=== PATIENT | female | born 1960 | race Caucasian/White ===

== ENCOUNTER 2020-05-29 07:38 | Outpatient (REF) | payer BC, SELFPAY ==
[2020-05-29 08:32] LABS: Hematocrit 39.7 % (37-47); Hemoglobin 12.5 g/dl (12.0-16.0); Mean Corpuscular HGB Conc 31.5 g/dl (31.0-35.0); Mean Corpuscular Hemoglobin 29.1 pg (27.0-33.0); Mean Corpuscular Volume 92.5 fL (80-98); Mean Platelet Volume 9.2 fL (9.4-12.3); Platelet Count 209 X10*3/uL (160-400); Red Blood Count 4.29 X10*6/uL (4.20-5.50); Red Cell Distribution Width 13.2 % (11.0-16.0); White Blood Count 6.2 X10*3/uL (4.8-10.8)
[2020-05-29 08:56] LABS: Alanine Aminotransferase 18 U/L (0-31); Albumin Level 4.1 g/dL (3.5-5.0); Alkaline Phosphatase 103 U/L (39-117); Anion Gap 12 (12-20); Aspartate Amino Transferase 18 U/L (5-31); Bilirubin Total 0.4 mg/dL (0.0-1.0); Blood Urea Nitrogen 15 mg/dL (9-16); Calcium 9.1 mg/dL (8.4-10.2); Carbon Dioxide 28 mmol/L (22-29); Chloride 106 mmol/L (96-108); Cholesterol 217 mg/dL; Estimated Glomerular Filt Rate > 60; Glucose Fasting 93 mg/dL (60-99); HDL Cholesterol 57 mg/dL; LDL Cholesterol Calculated 140 mg/dl; Potassium 4.3 mmol/l (3.3-5.1); Sodium 142 mmol/L (135-145); Total Protein 6.5 g/dL (6.5-8.0); Triglycerides 103 mg/dL
[2020-05-29 09:19] LABS: TSH reflex Free T4 2.12 mIU/mL (0.32-4.0)
== END 2020-05-29 07:39 | disposition home or self-care (01) ==
LOC: HO.LAB 07:38
PROVIDERS: PCP Physician Assistant; Visit Provider Physician Assistant
DX: I10 Essential (primary) hypertension (principal); E78.5 Hyperlipidemia, unspecified
CPT/HCPCS: 36415; 80053; 80061; 84443; 85027

== ENCOUNTER 2020-07-20 10:15 | Outpatient (REF) | payer BC, SELFPAY ==
--- NOTE | ~2020-07-20 | US_ITS ---
EXAMINATION: US ABDOMEN LIMITED CLINICAL INFORMATION: Right sided pain. COMPARISON: None TECHNIQUE: Real-time imaging of the right upper quadrant abdominal viscera. FINDINGS: PANCREAS: Normal. LIVER: The liver is normal in size. The liver contour is normal. Liver echotexture may be slightly increased. No focal hepatic lesion. There is no intrahepatic biliary duct dilatation seen. GALLBLADDER: There is a 3 mm echogenic density that does not move or shadow adjacent to the gallbladder wall questionable for a small gallbladder wall polyp. No definite stone is seen. The gallbladder wall is normal in thickness. There is no pericholecystic fluid. COMMON BILE DUCT: Normal in caliber measuring 0.50 cm in diameter. RIGHT KIDNEY: There is a 3 mm echogenic density with twinkle artifact in the midpole questionable for a small stone No hydronephrosis or focal parenchymal lesions. The kidney measures 10.1 cm in maximum dimension. FREE FLUID: None. US/US abdomen limited IMPRESSION: Slightly echogenic liver. Small 3 mm gallbladder wall polyp. Question small right renal stone.
== END 2020-07-20 10:16 | disposition home or self-care (01) ==
LOC: HO.HMGCX 10:15
PROVIDERS: PCP Physician Assistant; Visit Provider Internal Medicine
DX: R10.31 Right lower quadrant pain (principal)
CPT/HCPCS: 76705

== ENCOUNTER 2020-08-12 02:01 | Emergency (ER) | payer BC, SELFPAY ==
--- NOTE | ~2020-08-12 | CT_ITS ---
EXAMINATION: CT ABDOMEN AND PELVIS WITH CONTRAST CLINICAL INFORMATION: Right flank pain COMPARISON: None TECHNIQUE: Multidetector volumetric images were obtained from the superior aspect of the liver through the pubic symphysis following administration 85 mL of Omnipaque 350 intravenous contrast. Sagittal and coronal reformatted images were obtained on the technologist's workstation. Oral contrast: No This CT examination was performed using dose optimization techniques as appropriate, variously including the following: *Automated exposure control *Adjustment of mA and/or kV according to patient size (this includes techniques or standardized protocols for targeted exams where dose is matched to indication/reason for exam; i.e. extremities or head) *Use of iterative reconstruction technique DLP: 617 mGy-cm FINDINGS: LUNG BASES: The visualized lung bases are unremarkable. LIVER, GALLBLADDER, AND BILIARY TREE: The liver is normal in size, shape, and attenuation. No focal hepatic lesion or biliary ductal dilatation is present. The gallbladder is unremarkable with no evidence of radiopaque gallstones, gallbladder wall thickening, or obvious pericholecystic inflammatory changes. PANCREAS: Unremarkable. SPLEEN: Unremarkable. ADRENAL GLANDS: Unremarkable. KIDNEYS AND URETERS: The kidneys are normal in size, shape, and attenuation. No hydronephrosis, hydroureter, or calculi seen. No perinephric stranding. BLADDER: Unremarkable. GASTROINTESTINAL TRACT: Stomach and small bowel unremarkable. Mild submucosal fat deposition present within the terminal ileum and cecum, nonspecific. No intestinal obstruction or inflammation. Normal appendix. ABDOMINAL WALL: Small fat-containing umbilical hernia. LYMPH NODES: Normal. VASCULAR: Unremarkable. PELVIC VISCERA: Unremarkable. OSSEOUS STRUCTURES: No acute or suspicious osseous abnormalities. CT/CT abdomen pelvis w con IMPRESSION: * No acute findings within the abdomen or pelvis to explain the patient's symptomatology. * Nonspecific submucosal fat deposition present within the terminal ileum and cecum. This can be seen as a normal finding in the setting of obesity, but can also been seen in association with inflammatory bowel disease.
[2020-08-12 02:35] VITALS: BP 146/77; PULSE 83; RESP 16; TEMP 36.8; O2SAT 97; BMI 31.2
--- NOTE | 2020-08-12 03:44 | ED_ITS ---
HPI - Female Genitourinary General Chief complaint: Back Pain/Injury Stated complaint: Kidney infection? Time Seen by Provider: 08/12/20 02:18 Source: patient Mode of arrival: ambulatory History of Present Illness HPI Narrative: This is a 60-year-old female who is currently being worked up for possible kidney stone and was recently treated for a kidney infection and completed the antibiotics approximately 2 and half weeks ago. She also had an ultrasound that showed a possible kidney stone on the right. She now presents with acute onset of right flank pain that radiated into her right shoulder and denies any association with nausea, vomiting, fever, chills and denies any history of being told of cholelithiasis. Related Data Home Medications Medication Instructions Recorded Confirmed pravastatin 80 mg tablet 80 mg PO DAILY 06/03/20 07/14/20 triamcinolone acetonide 0.5 % appl TOPICAL BID 06/03/20 07/14/20 topical cream Previous Rx's Medication Instructions Recorded cholecalciferol (vitamin D3) 50 50 mcg PO DAILY 90 Days #90 tab 06/03/20 mcg (2,000 unit) tablet ezetimibe 10 mg tablet 10 mg PO DAILY 90 Days #90 tab 06/03/20 fluoxetine 20 mg capsule 40 mg PO DAILY 90 Days #180 cap 06/03/20 levothyroxine 75 mcg tablet 75 mcg PO DAILY 90 Days #90 tab 06/03/20 ropinirole 0.25 mg tablet 0.25 mg PO BEDTIME 90 Days #90 tab 06/03/20 sulfamethoxazole 800 1 tab PO BID #14 tab 07/14/20 mg-trimethoprim 160 mg tablet cefixime 400 mg PO DAILY 5 Days #5 cap 08/12/20 Allergies Allergy/AdvReac Type Severity Reaction Status Date / Time No Known Allergies Allergy Verified 06/03/20 09:07 Review of Systems Review of Systems: For pertinent positives and negatives as stated in HPI 10 point review of systems is otherwise negative. [facility] Past Medical History Source: nursing notes reviewed Surgical History History of bladder surgery History of colonoscopy History of tubal ligation Family History Family History Father Prostate cancer Mother Celiac disease Breast cancer Brother In good health Daughter In good health Social History Social History Advance Directives: No Physical Exam Vital Signs: Vital Signs: Last Vital Signs Temp 98.3 F 08/12/20 02:35 Pulse 72 08/12/20 07:00 Resp 16 08/12/20 07:00 BP 120/70 08/12/20 07:00 Pulse Ox 97 08/12/20 07:00 Body Mass Index 31.2 VITAL SIGNS: Reviewed. GENERAL: Well developed, well nourished, in no acute distress. HEAD: Normocephalic/atraumatic NOSE: Nares patent bilateral OROPHARYNX: no oral lesions noted, posterior pharynx clear NECK: Supple, no adenopathy LUNGS: Normal breath sounds. No adventitious sounds or accessory muscle use. SpO2<97> CARDIOVASCULAR: Regular rate and rhythm without noted murmurs ABDOMEN: Soft, non-tender, non-distended with bowel sounds, no CVA tenderness NEUROLOGIC: Alert and oriented x 4. Course Course Course Narrative: 60-year-old female with history and clinical presentation mildly suggestive of renal colic versus pyelonephritis and less likely gallbladder etiology. On review of all investigations there are no acute findings to better explain patient's current presenting symptoms other than trace leukocyte esterase and the presence of wbc's. Patient will receive initial antibiotics here in the emergency department. All results and findings were discussed with her at bedside and she was discharged with prescription for antibiotics. MDM - Female Genitourinary Lab Data Result diagrams: 08/12/20 04:21 08/12/20 04:21 Labs: Lab Results 08/12/20 08/12/20 08/12/20 Range/Units 04: 04:21 04:22 WBC 8.4 (4.8-10.8) X10*3/uL RBC 4.08 L (4.20-5.50) X10*6/uL Hgb 11.7 L (12.0-16.0) g/dl Hct 37.2 (37-47) % MCV 91.2 (80-98) fL MCH 28.7 (27.0-33.0) pg MCHC 31.5 (31.0-35.0) g/dl RDW 13.0 (11.0-16.0) % Plt Count 194 (160-400) X10*3/uL MPV 8.9 L (9.4-12.3) fL Immature Gran % (Auto) 0.2 (0.0-0.4) % Neut % (Auto) 76.5 H (45-73) % Lymph % (Auto) 12.4 L (20-40) % [place] % (Auto) 8.9 (2-11) % Eos % (Auto) 1.3 (0-4) % Baso % (Auto) 0.7 (0-2) % Lymph # (Auto) 1.0 L (1.2-4.9) X10*3/uL [place] # (Auto) 0.8 (0.1-1.2) X10*3/uL Eos # (Auto) 0.1 (0.0-0.4) X10*3/uL Baso # (Auto) 0.1 (0.0-0.2) X10*3/uL Abs Immat Gran (auto) 0.02 (0.00-0.03) X10*3/uL Absolute Neuts (auto) 6.4 (2.0-8.3) X10*3/uL Absolute Nucleated RBC 0.000 (0.0-0.012) X10*3/uL Nucleated RBC % (auto) 0.0 (0.0-0.2) /100WBC Sodium 139 (135-145) mmol/L Potassium 4.1 (3.3-5.1) mmol/L Chloride 104 (96-108) mmol/L Carbon Dioxide 27 (22-29) mmol/L Anion Gap 12 (12-20) BUN 14 (9-16) mg/dL Creatinine 0.66 (0.5-1.4) mg/dL Estim Creat Clear Calc 88.5 Estimated GFR > 60 Random Glucose 105 (60-115) mg/dL Calcium 8.6 (8.4-10.2) mg/dL Total Bilirubin 0.4 (0.0-1.0) mg/dL AST 17 (5-31) U/L ALT 18 (0-31) U/L Alkaline Phosphatase 88 (39-117) U/L Total Protein 6.3 L (6.5-8.0) g/dL Albumin 3.9 (3.5-5.0) g/dL Urine Color YELLOW Urine Appearance CLEAR Urine pH 6.0 (5.0-8.0) Ur Specific [place] >= 1.030 H (1.005-1.025) Urine Protein NEG (NEG-TRACE) MG/DL Urine Glucose (UA) NEG (NEG) MG/DL Urine Ketones NEG (NEG) MG/DL Urine Blood TRACE (NEG) Urine Nitrite NEG (NEG) Ur Leukocyte Esterase TRACE H (NEG) Urine RBC 1-4 (0) /HPF Urine WBC 10-14 H (0-4) /HPF Ur Squamous Epith Cells 1+ /LPF Urine Bacteria 1+ /LPF Urine Mucus 1+ /LPF Discharge Plan Discharge Clinical Impression: Pyelonephritis Patient Disposition: Home, Self-Care Instructions: Kidney Infection (ED), Flank Pain (ED) Additional Instructions: 1. Resume all home medications as prescribed. 2. Please follow-up with your primary care provider in the next 2-3 days. 3. Please increase fluid hydration especially with water. Do not hesitate to return to the emergency department should you develop any acute worsening of symptoms. Prescriptions: New cefixime 400 mg capsule 400 mg PO DAILY 5 Days Qty: 5 RF: 0 No Action triamcinolone acetonide 0.5 % cream topical BID RF: 0 pravastatin 80 mg tablet 80 mg PO DAILY RF: 0 levothyroxine 75 mcg tablet 75 mcg PO DAILY 90 Days Qty: 90 RF: 2 ropinirole 0.25 mg tablet 0.25 mg PO BEDTIME 90 Days Qty: 90 RF: 2 cholecalciferol (vitamin D3) 50 mcg (2,000 unit) tablet 50 mcg PO DAILY 90 Days Qty: 90 RF: 2 ezetimibe 10 mg tablet 10 mg PO DAILY 90 Days Qty: 90 RF: 2 fluoxetine 20 mg capsule 40 mg PO DAILY 90 Days Qty: 180 RF: 2 sulfamethoxazole-trimethoprim [Bactrim DS] 800-160 mg tablet 1 tab PO BID Qty: 14 RF: 0 Referrals: Usman Segundo PA-C [Primary Care Provider] - 2 days (Re-evaluation for right flank pain. Please follow-up on urine culture. Patient started on empiric antibiotics for pyelonephritis.)
[2020-08-12 04:29] LABS: Basophils Absolute Auto 0.1 X10*3/uL (0.0-0.2); Basophils Percent Auto 0.7 % (0-2); Eosinophils Absolute Auto 0.1 X10*3/uL (0.0-0.4); Eosinophils Percent Auto 1.3 % (0-4); Hematocrit 37.2 % (37-47); Hemoglobin 11.7 g/dl (12.0-16.0); Imm Gran Abs Auto 0.02 X10*3/uL (0.00-0.03); Imm Gran Pct Auto 0.2 % (0.0-0.4); Lymphocytes Percent Auto 12.4 % (20-40); MANUAL DIFF FLAG NO; Mean Corpuscular HGB Conc 31.5 g/dl (31.0-35.0); Mean Corpuscular Hemoglobin 28.7 pg (27.0-33.0); Mean Corpuscular Volume 91.2 fL (80-98); Mean Platelet Volume 8.9 fL (9.4-12.3); Monocytes Absolute Auto 0.8 X10*3/uL (0.1-1.2); Monocytes Percent Auto 8.9 % (2-11); Neutrophils Absolute Auto 6.4 X10*3/uL (2.0-8.3); Neutrophils Percent Auto 76.5 % (45-73); Platelet Count 194 X10*3/uL (160-400); Red Blood Count 4.08 X10*6/uL (4.20-5.50); White Blood Count 8.4 X10*3/uL (4.8-10.8)
[2020-08-12 04:31] LABS: Glucose Urine UA NEG (NEG); Leukocyte Esterase Urine TRACE (NEG); Nitrite Urine NEG (NEG); Specific Gravity - Urine >= 1.030 (1.005-1.025); UACC Culture Trigger YES; Urine Blood TRACE (NEG); Urine Ketones NEG (NEG); Urine Protein NEG (NEG-TRACE)
[2020-08-12 04:34] LABS: Appearance Urine CLEAR; Color Urine YELLOW
[2020-08-12 04:41] LABS: Bacteria Urine 1+ /LPF; Mucus Urine 1+ /LPF; Squamous Epithelial Cell Urine 1+ /LPF
[2020-08-12 04:52] LABS: Alanine Aminotransferase 18 U/L (0-31); Albumin Level 3.9 g/dL (3.5-5.0); Alkaline Phosphatase 88 U/L (39-117); Anion Gap 12 (12-20); Aspartate Amino Transferase 17 U/L (5-31); Bilirubin Total 0.4 mg/dL (0.0-1.0); Blood Urea Nitrogen 14 mg/dL (9-16); Calcium 8.6 mg/dL (8.4-10.2); Carbon Dioxide 27 mmol/L (22-29); Chloride 104 mmol/L (96-108); Creatinine Clr Calc Pharmacy 88.5; Estimated Glomerular Filt Rate > 60; Glucose Random 105 mg/dL (60-115); Potassium 4.1 mmol/L (3.3-5.1); Sodium 139 mmol/L (135-145); Total Protein 6.3 g/dL (6.5-8.0)
[2020-08-12 05:22] VITALS: BP 115/54; PULSE 70; RESP 18; O2SAT 95
[2020-08-12] MEDS: iohexoL 350 MG/ML 100 ML INFUS..BTL IV (06:28)
[2020-08-12] MEDS: cefTRIAXone sodium 1 GM in 0.9 % Sodium Chloride 50 ML IV (06:58)
[2020-08-12 07:00] VITALS: BP 120/70; PULSE 72; RESP 16; O2SAT 97
[2020-08-12] MEDS: 0.9 % Sodium Chloride 1,000 ML 999 ML IV (07:00)
== END 2020-08-12 08:33 | disposition home or self-care (01) ==
PROVIDERS: Emergency Provider Student in an Organized Health Care Education/Training Program; PCP Physician Assistant
DX: N12 Tubulo-interstitial nephritis, not specified as acute or chronic (principal); R10.9 Unspecified abdominal pain
CPT/HCPCS: 36415; 74177; 80053; 81001; 81003; 85025; 87086; 96361; 96365; 99284; J0696; Q9967

== ENCOUNTER 2020-08-17 08:41 | Outpatient (REF) | payer BC, SELFPAY ==
--- NOTE | ~2020-08-17 | MM_ITS ---
EXAMINATION: MM SCREENING DIGITAL BREAST TOMOSYNTHESIS, BILATERAL CLINICAL INFORMATION: Screening. Asymptomatic. The lifetime risk of breast cancer based on the Tyrer-Cuzick Model is 14%. COMPARISON: Mammography: 03/13/2019, 11/14/2016 TECHNIQUE: Digital breast tomosynthesis is performed in both the craniocaudal and mediolateral oblique views along with computer-aided detection (CAD). Synthesized 2D images are generated from the tomosynthesis. FINDINGS: There are scattered areas of fibroglandular density (ACR BI-RADS breast composition Category b). There are no significant masses, abnormal calcifications, or other abnormalities. Parenchymal pattern similar to prior exams. The axilla and skin contours are unremarkable. No significant changes. MM/MM tomosynthesis screening BI IMPRESSION: No mammographic evidence of malignancy. ASSESSMENT: BI-RADS 1: Negative RECOMMENDATION: Routine annual mammography screening. This patient's information was entered into a reminder system with a target due date for their next mammogram.
== END 2020-08-17 08:42 | disposition home or self-care (01) ==
LOC: HO.MAMMO 08:41
PROVIDERS: PCP Physician Assistant; Visit Provider Physician Assistant
DX: Z12.31 Encounter for screening mammogram for malignant neoplasm of breast (principal)
CPT/HCPCS: 77063; 77067

== ENCOUNTER → 2020-08-31 09:46 | Outpatient (BNVA) | payer BC, SELFPAY | PROVIDERS: PCP Physician Assistant; Visit Provider Urology | DX: K50.00 Crohn's disease of small intestine without complications (principal) | CPT/HCPCS: 81002 ==

== ENCOUNTER 2020-11-18 13:14 | Outpatient (REF) | payer BC, SELFPAY ==
[2020-11-18 15:21] LABS: Hematocrit 40.8 % (37-47); Hemoglobin 12.9 g/dl (12.0-16.0); Mean Corpuscular HGB Conc 31.6 g/dl (31.0-35.0); Mean Corpuscular Hemoglobin 28.7 pg (27.0-33.0); Mean Corpuscular Volume 90.7 fL (80-98); Mean Platelet Volume 9.4 fL (9.4-12.3); Platelet Count 239 X10*3/uL (160-400); White Blood Count 9.8 X10*3/uL (4.8-10.8)
[2020-11-18 15:45] LABS: Alanine Aminotransferase 22 U/L (0-31); Albumin Level 4.3 g/dL (3.5-5.0); Alkaline Phosphatase 96 U/L (39-117); Anion Gap 13 (12-20); Aspartate Amino Transferase 24 U/L (5-31); Bilirubin Total 0.4 mg/dL (0.0-1.0); Blood Urea Nitrogen 13 mg/dL (9-16); Calcium 9.6 mg/dL (8.4-10.2); Carbon Dioxide 28 mmol/L (22-29); Chloride 103 mmol/L (96-108); Cholesterol 243 mg/dL; Estimated Glomerular Filt Rate > 60; Glucose Fasting 82 mg/dL (60-99); HDL Cholesterol 69 mg/dL; LDL Cholesterol Calculated 136 mg/dl; Potassium 4.6 mmol/L (3.3-5.1); Sodium 139 mmol/L (135-145); Total Protein 7.1 g/dL (6.5-8.0); Triglycerides 192 mg/dL
[2020-11-18 16:00] LABS: Glucose Urine UA NEG (NEG); Leukocyte Esterase Urine NEG (NEG); Nitrite Urine NEG (NEG); Specific Gravity - Urine 1.025 (1.005-1.025); Urine Blood NEG (NEG); Urine Ketones NEG (NEG); Urine Protein NEG (NEG-TRACE)
[2020-11-18 16:05] LABS: Appearance Urine CLEAR; Color Urine YELLOW
[2020-11-18 16:05] LABS: TSH reflex Free T4 1.64 uIU/mL (0.32-4.0)
== END 2020-11-18 13:15 | disposition home or self-care (01) ==
LOC: HO.LAB 13:14
PROVIDERS: PCP Physician Assistant; Referring Provider Physician Assistant; Visit Provider Nurse Practitioner
DX: K50.00 Crohn's disease of small intestine without complications (principal); E03.9 Hypothyroidism, unspecified; E78.2 Mixed hyperlipidemia; I10 Essential (primary) hypertension; Z87.891 Personal history of nicotine dependence
CPT/HCPCS: 36415; 80053; 80061; 81003; 81479; 82397; 83520; 84443; 85027; 86140; 88346; 88350

== ENCOUNTER 2020-12-02 11:21 | Outpatient (REF) | payer BC, SELFPAY | END 2020-12-02 11:22 | disposition home or self-care (01) | LOC: HO.LNP 11:21 | PROVIDERS: Visit Provider Nurse Practitioner | DX: R19.7 Diarrhea, unspecified (principal); K50.00 Crohn's disease of small intestine without complications | CPT/HCPCS: 87045; 87046 ==

== ENCOUNTER 2021-01-14 07:38 | Day surgery (SDC) | payer BC, SELFPAY ==
--- NOTE | 2021-01-13 10:17 | P.CONAN_ITS ---
Documented by User: Shonda Patel NP 01/13/21 10:20 HPI - Anesthesia Eval Consult details Narrative: 60yo F for Colonoscopy PMFSH Active Problems Active Problems: All Active Problems (Updated 01/07/21 @ 12:39 by Afsaneh Cardoza, LIZBETH) HLD (hyperlipidemia) (Acute) Hypothyroid (Acute) Neuropathy (Acute) RLS (restless legs syndrome) (Acute) JOHNATHAN (generalized anxiety disorder) (Acute) Impaired glucose tolerance (Acute) RLQ abdominal pain (Acute) UTI (urinary tract infection) (Acute) Ileitis, terminal (Acute) Elevated blood pressure, situational (Acute) Annual physical exam (Acute) Terminal ileitis (Acute) Diarrhea (Acute) Acute right flank pain (Acute) Past Medical History Medical History Anxiety and depression Colon cancer screening Hypothyroidism Restless leg syndrome Family History Family History Father Prostate cancer Mother Celiac disease Breast cancer Brother In good health Daughter In good health Surgical History Surgical History History of bladder surgery History of colonoscopy History of tubal ligation Social History Social History Housing: Condominium Patient Tobacco Use Status: Former Tobacco user Tobacco use type: Cigarette Second Hand Smoke Exposure: No Use of substances other than those prescribed or required for medical reasons: No Are you DNR?: No Advance Directives: No Advance Directives Information Provided: Yes service: No Current occupational status: employed 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 Allergies Allergy/AdvReac Type Severity Reaction Status Date / Time No Known Allergies Allergy Verified 01/14/21 07:53 Home Medications Medication Instructions Recorded Confirmed Last Taken Type cholecalciferol (vitamin D3) 50 50 mcg PO DAILY 08/31/20 01/07/21 Unknown History mcg (2,000 unit) capsule Saccharomyces boulardii 250 mg 250 mg PO DAILY cap 11/18/20 01/07/21 Unknown History capsule (Probiotic (S.boulardii)) psyllium husk 0.4 gram capsule 0.4 g PO DAILY 11/18/20 01/07/21 Unknown History (Metamucil) Exam Exam Date and Time: January 13, 2021 1017 Pertinent Lab Results Pertinent Lab Results: Laboratory Tests 11/18/20 11/18/20 14:50 14:50 WBC 9.8 Hgb 12.9 Hct 40.8 Plt Count 239 Sodium 139 Potassium 4.6 Chloride 103 Carbon Dioxide 28 BUN 13 Creatinine 0.72 Assessment and Plan Assessment Anesthesia Assessment: Chart Reviewed Documented by User: Apryl Jett MD 01/14/21 08:47 [facility] Past Medical History Medical History Anxiety and depression Colon cancer screening Hypothyroidism Restless leg syndrome Family History Family History Father Prostate cancer Mother Celiac disease Breast cancer Brother In good health Daughter In good health Surgical History Surgical History History of bladder surgery History of colonoscopy History of tubal ligation History of Problems with Anesthesia: No Social History [facility] History [facility] Patient Tobacco Use Status: Former Tobacco user Tobacco use type: Cigarette Second Hand Smoke Exposure: No Use of substances other than those prescribed or required for medical reasons: No Are you DNR?: No Advance Directives: No Advance Directives Information Provided: Yes service: No Current occupational status: employed 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 Allergies Allergy/AdvReac Type Severity Reaction Status Date / Time No Known Allergies Allergy Verified 01/14/21 07:53 Home Medications Medication Instructions Recorded Confirmed Last Taken Type cholecalciferol (vitamin D3) 50 50 mcg PO DAILY 08/31/20 01/07/21 Unknown History mcg (2,000 unit) capsule Saccharomyces boulardii 250 mg 250 mg PO DAILY cap 11/18/20 01/07/21 Unknown History capsule (Probiotic (S.boulardii)) psyllium husk 0.4 gram capsule 0.4 g PO DAILY 11/18/20 01/07/21 Unknown History (Metamucil) Exam Airway Mallampati Class: II TM Dist: >3cm Neck ROM: Full Loose/Missing/Broken Teeth: No Heart: RRR Lungs: CTA Assessment and Plan Final Anesthetic Review History of Problems with Anesthesia: No NPO: Yes ASA Class: II Final Preanesthetic Review: Meds/Allgs Chart Reviewed, Consent Obtained/Reviewed and Anes Risks/Benef Reviewed Patient Risk: Low Procedure Risk: Low Anesthetic Plan Anesthetic Plan: MAC: Disposition: Standard PACU
--- NOTE | 2021-01-14 07:50 | MHC.SHP ---
Pre-Procedural Eval Section A Date of Service: 01/14/21 The patient is an INPATIENT: No The History & Physical has been completed within 30 days and I have reviewed it.: No Section B Chief Complaint: crohn's disease Relevant Family History (Specify if Yes): Yes Relevant Social History: Tobacco Use (former smoker) Present Medications: see Short Stay Collaborative assessment Medical History: Significant History (Anxiety and depression Colon cancer screening Hypothyroidism Preop examination Restless leg syndrome) History of Previous Operations: Relevant previous surgery/procedure and date(s) (History of bladder surgery History of colonoscopy History of tubal ligation) Allergies: Allergies Allergy/AdvReac Type Severity Reaction Status Date / Time No Known Allergies Allergy Verified 01/07/21 12:39 Review of Systems Sugical H&P ROS: Negative: Constitution, Cardiovascular and Respiratory and Yes, Specify: Gastrointestinal (diarrhea) Exam Surgical H&P Exam: Normal: Heart, Normal: Lungs, Normal: Extremities and Normal: Abdomen Plan Diagnosis/Plan: Unchanged I have reviewed the history and physical and performed a pertinent physical examination on my patient. No changes have occurred unless specified.
[2021-01-14 08:05] VITALS: BP 131/71; PULSE 84; RESP 18; TEMP 36.5; O2SAT 94; BMI 30.2
[2021-01-14] MEDS: Lactated Ringers 1,000 ML 100 ML IVCONT (08:20)
--- NOTE | 2021-01-14 08:51 | W.PM.OPN ---
Operative Note Operative Note Date of Service: 01/14/21 Narrative: Pre-op diagnosis:?Colon cancer screening, abdominal pain, diarrhea, abnormal CT scan of colon and TI Post-op diagnosis:?other (Diverticulosis, hemorrhoids, AVM) Procedure:? COLONOSCOPY TILL CECUM WITH BIOPSIES Consent: Indications for the procedure and potential complications of bleeding, perforation, reaction to medications and missed diagnosis were discussed with the patient and informed consent was obtained. Instrument: Olympus PCF H 190 L variable stiffness pediatric colonoscope Monitoring: Vital signs and clinical assessment, intermittent blood pressure monitoring, continuous EKG monitoring, Pulse oximetry and Carbon Dioxide monitoring were done throughout the procedure. Colon withdrawl time was 16 minutes. Procedure: The patient was placed in the left lateral decubitis position and pre-procedure medications were administered. After a digital rectal examination of the ano-rectum, the video colonoscope was inserted into the rectum and advanced through the colon to the cecum. The colonoscope was slowly withdrawn in a retrograde panoramic fashion and the colon mucosa was carefully examined including a retroflexed view of the rectum. Findings and interventions are described below. Procedure Difficulty: Pt was placed in the supine position to intubate the TI Findings: Terminal Ileum:? Distal 10 cm was examined and appeared normal - random biopsies were obtained Cecum:? Normal Ascending Colon:? A 1 cms non-bleeidng AVM in the proximal AC. Transverse Colon:? Normal Descending Colon:? Moderate diverticulosis Sigmoid Colon:? Severe diverticulosis with luminal narrowing Rectum:? Normal Ano-rectum:? Moderate internal hemorrhoids Colon preparation: Excellent ? Impression and Post Procedure Diagnosis: Colonoscopy Findings: Normal TI - random biopsies were obtained. Random biopsies were obtained from the right and left colon. No polyps were detected Moderate to severe diverticulosis seen in the left colon Moderate hemorrhoids on retroflexed exam. Plan: Await pathology results Patient has an appointment on 01/27/21 in the GI Clinic with? Isis Scanlon NP. If biopsies are normal and patient continues to have symptoms, consider further evaluation with repeat CRP, fecal calprotectin and Capsule Endoscopy. Repeat Colonoscopy interval based on path results - in 10 years if biopsies are normal. Above findings were reviewed with the patient and diverticulosis handout was given in the discharge area Surgeon:?Avery Irvin MD Anesthesia:?MAC Was an Immigration Lawyer used for this Procedure?:?No Immigration Lawyer:?Elsi De La Cruz Estimated blood loss (mL):?0 Pathology:?other ( A. terminal ileum biopsies? B. random right colon biopsies? C. left colon biopsies) Condition:?stable Disposition:?PACU
[2021-01-14 09:36] VITALS: BP 101/57; PULSE 81; RESP 12; TEMP 36.6; O2SAT 94
[2021-01-14 09:51] VITALS: BP 107/62; PULSE 68; RESP 16; TEMP 36.6; O2SAT 94
== END 2021-01-14 10:30 | disposition home or self-care (01) ==
PROVIDERS: PCP Physician Assistant; Visit Provider Internal Medicine Gastroenterology
PROC: 0DJD8ZZ Inspection of Lower Intestinal Tract, Via Natural or Artificial Opening Endoscopic (ICD-10-PCS; CPT 45378; principal; 2021-01-14 09:10)
DX: Z12.11 Encounter for screening for malignant neoplasm of colon (principal); R93.3 Abnormal findings on diagnostic imaging of other parts of digestive tract; R19.7 Diarrhea, unspecified; R10.9 Unspecified abdominal pain; K57.30 Diverticulosis of large intestine without perforation or abscess without bleeding; K64.8 Other hemorrhoids; Q27.33 Arteriovenous malformation of digestive system vessel
CPT/HCPCS: 45380; 88305

== ENCOUNTER 2021-03-03 07:31 | Outpatient (REF) | payer BC, SELFPAY ==
--- NOTE | ~2021-03-03 | XR_ITS ---
EXAMINATION: XR KNEE, RIGHT XR KNEE, BILATERAL CLINICAL INFORMATION: Pain COMPARISON: 06/25/2018 TECHNIQUE: AP standing view of both knees with lateral and sunrise views of the right knee. FINDINGS: Right knee: No fracture or subluxation. Mild medial compartment joint space narrowing. Remaining compartmental joint spaces are maintained. No joint effusion. The soft tissues are unremarkable. Left knee: No fracture or subluxation. Compartmental joint spaces are maintained. XR/XR knee standing BI IMPRESSION: Mild medial compartment joint space narrowing of the right knee. Otherwise unremarkable appearance.
--- NOTE | ~2021-03-03 | XR_ITS ---
EXAMINATION: XR KNEE, RIGHT XR KNEE, BILATERAL CLINICAL INFORMATION: Pain COMPARISON: 06/25/2018 TECHNIQUE: AP standing view of both knees with lateral and sunrise views of the right knee. FINDINGS: Right knee: No fracture or subluxation. Mild medial compartment joint space narrowing. Remaining compartmental joint spaces are maintained. No joint effusion. The soft tissues are unremarkable. Left knee: No fracture or subluxation. Compartmental joint spaces are maintained. XR/XR knee RT 2V IMPRESSION: Mild medial compartment joint space narrowing of the right knee. Otherwise unremarkable appearance.
== END 2021-03-03 07:32 | disposition home or self-care (01) ==
LOC: HO.HOSX 07:31
PROVIDERS: Visit Provider Physician Assistant
DX: M17.11 Unilateral primary osteoarthritis, right knee (principal); M25.562 Pain in left knee
CPT/HCPCS: 73560; 73565

== ENCOUNTER → 2021-04-07 12:22 | Outpatient (BNVA) | payer BC, SELFPAY | PROVIDERS: PCP Physician Assistant; Visit Provider Physician Assistant | DX: M17.11 Unilateral primary osteoarthritis, right knee (principal) | CPT/HCPCS: 20610 ==

== ENCOUNTER 2021-04-13 08:58 | Outpatient (REF) | payer BC, SELFPAY ==
--- NOTE | ~2021-04-13 | XR_ITS ---
EXAMINATION: 1. PELVIC X-RAY 2. RADIOGRAPHS RIGHT HIP CLINICAL INFORMATION: Right hip pain COMPARISON: CT abdomen pelvis 08/12/2020 TECHNIQUE: Frontal view of the pelvis and 2 views of the right hip were obtained. FINDINGS: The pelvic ring is intact. Sacroiliac joints are relatively symmetric. There is neither fracture or dislocation of either hip. Specifically, additional views of the right hip demonstrate mild narrowing of the right femoral acetabular joint space. Tiny osteophyte is noted along the superolateral margin of the right acetabulum. Tiny osteophyte also appreciated along the inferomedial aspect of the right femoral head/neck junction. XR/XR hip RT min 2V IMPRESSION: Minimal degenerative changes of the right hip without fracture.
--- NOTE | ~2021-04-13 | XR_ITS ---
EXAMINATION: 1. PELVIC X-RAY 2. RADIOGRAPHS RIGHT HIP CLINICAL INFORMATION: Right hip pain COMPARISON: CT abdomen pelvis 08/12/2020 TECHNIQUE: Frontal view of the pelvis and 2 views of the right hip were obtained. FINDINGS: The pelvic ring is intact. Sacroiliac joints are relatively symmetric. There is neither fracture or dislocation of either hip. Specifically, additional views of the right hip demonstrate mild narrowing of the right femoral acetabular joint space. Tiny osteophyte is noted along the superolateral margin of the right acetabulum. Tiny osteophyte also appreciated along the inferomedial aspect of the right femoral head/neck junction. XR/XR pelvis 1-2V IMPRESSION: Minimal degenerative changes of the right hip without fracture.
== END 2021-04-13 08:59 | disposition home or self-care (01) ==
LOC: HO.HOSX 08:58
PROVIDERS: Visit Provider Physician Assistant
DX: M25.551 Pain in right hip (principal)
CPT/HCPCS: 72170; 73502

== ENCOUNTER → 2021-04-14 12:23 | Outpatient (BNVA) | payer BC, SELFPAY | PROVIDERS: PCP Physician Assistant; Visit Provider Physician Assistant | DX: M17.11 Unilateral primary osteoarthritis, right knee (principal) | CPT/HCPCS: 20610 ==

== ENCOUNTER → 2021-04-21 09:53 | Outpatient (BNVA) | payer BC, SELFPAY | PROVIDERS: PCP Physician Assistant; Visit Provider Physician Assistant | DX: M17.11 Unilateral primary osteoarthritis, right knee (principal) | CPT/HCPCS: 20610 ==

== ENCOUNTER 2021-08-25 09:02 | Outpatient (REF) | payer BC, SELFPAY ==
--- NOTE | ~2021-08-25 | MM_ITS ---
EXAMINATION: MM SCREENING DIGITAL BREAST TOMOSYNTHESIS, BILATERAL CLINICAL INFORMATION: Screening. Asymptomatic. The lifetime risk of breast cancer based on the Tyrer-Cuzick Model is 12.5%. COMPARISON: Mammography: August 17, 2020 and studies dating back to December 15, 2013 TECHNIQUE: Digital breast tomosynthesis is performed in both the craniocaudal and mediolateral oblique views along with computer-aided detection (CAD). Synthesized 2D images are generated from the tomosynthesis. FINDINGS: There are scattered areas of fibroglandular density (ACR BI-RADS breast composition Category b). There are no significant masses, abnormal calcifications, or other abnormalities. MM/MM tomosynthesis screening BI IMPRESSION: There are no significant changes from prior study. ASSESSMENT: BI-RADS 1: Negative RECOMMENDATION: Routine annual mammography screening. This patient's information was entered into a reminder system with a target due date for their next mammogram.
== END 2021-08-25 09:03 | disposition home or self-care (01) ==
LOC: HO.MAMMO 09:02
PROVIDERS: Visit Provider Physician Assistant
DX: Z12.31 Encounter for screening mammogram for malignant neoplasm of breast (principal)
CPT/HCPCS: 77063; 77067

== ENCOUNTER 2021-12-15 08:13 | Outpatient (REF) | payer BC, SELFPAY ==
[2021-12-15 08:45] LABS: Hematocrit 40.8 % (37.0-47.0); Hemoglobin 12.9 g/dl (12.0-16.0); Mean Corpuscular HGB Conc 31.6 g/dl (31.0-35.0); Mean Corpuscular Hemoglobin 27.6 pg (27.0-33.0); Mean Corpuscular Volume 87.2 fL (80.0-98.0); Mean Platelet Volume 9.2 fL (9.4-12.3); Platelet Count 223 X10*3/uL (160-400); Red Blood Count 4.68 X10*6/uL (4.20-5.50); Red Cell Distribution Width 12.9 % (11.0-16.0); White Blood Count 6.7 X10*3/uL (4.8-10.8)
[2021-12-15 09:19] LABS: Alanine Aminotransferase 30 U/L (0-31); Albumin Level 4.1 g/dL (3.5-5.0); Alkaline Phosphatase 93 U/L (39-117); Anion Gap 14 (12-20); Aspartate Amino Transferase 25 U/L (5-31); Bilirubin Total 0.4 mg/dL (0.0-1.0); Blood Urea Nitrogen 9 mg/dL (9-16); Calcium 8.9 mg/dL (8.4-10.2); Carbon Dioxide 27 mmol/L (22-29); Chloride 104 mmol/L (96-108); Cholesterol 209 mg/dL; Estimated Glomerular Filt Rate > 60; Glucose Fasting 94 mg/dL (60-99); HDL Cholesterol 51 mg/dL; LDL Cholesterol Calculated 132 mg/dl; Potassium 4.6 mmol/L (3.3-5.1); Sodium 140 mmol/L (135-145); Total Protein 6.7 g/dL (6.5-8.0); Triglycerides 133 mg/dL
[2021-12-15 09:29] LABS: TSH reflex Free T4 2.13 uIU/mL (0.32-4.0)
== END 2021-12-15 08:14 | disposition home or self-care (01) ==
LOC: HO.LAB 08:13
PROVIDERS: PCP Physician Assistant; Visit Provider Physician Assistant
DX: E03.9 Hypothyroidism, unspecified (principal); E78.2 Mixed hyperlipidemia
CPT/HCPCS: 36415; 80053; 80061; 84443; 85027

== ENCOUNTER 2022-08-03 07:28 | Outpatient (REF) | payer BC, SELFPAY ==
[2022-08-03 08:17] LABS: Hematocrit 41.4 % (37.0-47.0); Hemoglobin 13.1 g/dl (12.0-16.0); Mean Corpuscular HGB Conc 31.6 g/dl (31.0-35.0); Mean Corpuscular Hemoglobin 27.8 pg (27.0-33.0); Mean Corpuscular Volume 87.9 fL (80.0-98.0); Mean Platelet Volume 9.1 fL (9.4-12.3); Platelet Count 238 X10*3/uL (160-400); Red Blood Count 4.71 X10*6/uL (4.20-5.50); Red Cell Distribution Width 13.3 % (11.0-16.0); White Blood Count 6.6 X10*3/uL (4.8-10.8)
[2022-08-03 08:53] LABS: Alanine Aminotransferase 17 U/L (0-31); Albumin Level 3.9 g/dL (3.5-5.0); Alkaline Phosphatase 93 U/L (39-117); Anion Gap 11 (12-20); Aspartate Amino Transferase 18 U/L (5-31); Bilirubin Total 0.5 mg/dL (0.0-1.0); Blood Urea Nitrogen 12 mg/dL (9-16); Calcium 8.9 mg/dL (8.4-10.2); Carbon Dioxide 27 mmol/L (22-29); Chloride 106 mmol/L (96-108); Cholesterol 214 mg/dL; Estimated Glomerular Filt Rate > 60; Glucose Fasting 91 mg/dL (60-99); HDL Cholesterol 48 mg/dL; LDL Cholesterol Calculated 140 mg/dl; Potassium 4.4 mmol/L (3.3-5.1); Sodium 140 mmol/L (135-145); Total Protein 6.3 g/dL (6.5-8.0); Triglycerides 134 mg/dL
[2022-08-03 09:10] LABS: TSH reflex Free T4 3.24 uIU/mL (0.32-4.0)
== END 2022-08-03 07:29 | disposition home or self-care (01) ==
LOC: HO.LAB 07:28
PROVIDERS: PCP Physician Assistant; Visit Provider Physician Assistant
DX: E03.9 Hypothyroidism, unspecified (principal); E78.2 Mixed hyperlipidemia
CPT/HCPCS: 36415; 80053; 80061; 84443; 85027

== ENCOUNTER 2022-08-10 06:05 | Outpatient (REF) | payer BC, SELFPAY ==
--- NOTE | ~2022-08-10 | XR_ITS ---
EXAMINATION: XR KNEE, LEFT CLINICAL INFORMATION: Pain COMPARISON: None available. TECHNIQUE: Three views of the left knee. FINDINGS: Bone alignment is normal. No fracture or dislocation. Small osteophytes at the patellofemoral joint. Mild medial femoral tibial joint space narrowing. No joint effusion. XR/XR knee LT 3V IMPRESSION: Mild degenerative changes.
== END 2022-08-10 06:06 | disposition home or self-care (01) ==
LOC: HO.HOSX 06:05
PROVIDERS: Visit Provider Physician Assistant
DX: M17.12 Unilateral primary osteoarthritis, left knee (principal)
CPT/HCPCS: 73562

== ENCOUNTER 2022-10-19 08:32 | Outpatient (REF) | payer BC, SELFPAY ==
--- NOTE | ~2022-10-19 | MM_ITS ---
EXAMINATION: MM SCREENING DIGITAL BREAST TOMOSYNTHESIS, BILATERAL CLINICAL INFORMATION: Screening. Asymptomatic. The lifetime risk of breast cancer based on the Tyrer-Cuzick Model is 14%. COMPARISON: Mammography: 08/25/2021, 08/17/2020, 03/13/2019, 11/14/2016 TECHNIQUE: Digital breast tomosynthesis is performed in both the craniocaudal and mediolateral oblique views along with computer-aided detection (CAD). Synthesized 2D images are generated from the tomosynthesis. FINDINGS: There are scattered areas of fibroglandular density (ACR BI-RADS breast composition Category b). There are no significant masses, abnormal calcifications, or other abnormalities. No architectural abnormality or developing density or significant change from prior studies. The axilla and skin contours are unremarkable. MM/MM tomosynthesis screening BI IMPRESSION: No mammographic evidence of malignancy. ASSESSMENT: BI-RADS 1: Negative RECOMMENDATION: Routine annual mammography screening. This patient's information was entered into a reminder system with a target due date for their next mammogram.
== END 2022-10-19 08:33 | disposition home or self-care (01) ==
LOC: HO.MAMMO 08:32
PROVIDERS: Visit Provider Physician Assistant
DX: Z12.31 Encounter for screening mammogram for malignant neoplasm of breast (principal)
CPT/HCPCS: 77063; 77067

== ENCOUNTER 2022-10-19 08:57 | Outpatient (REF) | payer BC, SELFPAY ==
[2022-10-19 11:02] LABS: Vitamin D 25-OH Total 55.2 ng/mL (>30)
[2022-10-23 19:18] LABS: Thyroglobulin Antibodies <1 IU/mL (< or = 1); Thyroid Peroxidase Antibodies 1 IU/mL (<9)
== END 2022-10-19 08:58 | disposition home or self-care (01) ==
LOC: HO.LAB 08:57
PROVIDERS: PCP Physician Assistant; Visit Provider Physician Assistant
DX: E03.9 Hypothyroidism, unspecified (principal); E55.9 Vitamin D deficiency, unspecified
CPT/HCPCS: 36415; 82306; 86376; 86800

== ENCOUNTER 2023-01-11 07:45 | Outpatient (AMB) | payer BC, SELFPAY ==
[2023-01-11 07:54] VITALS: BP 130/88; PULSE 59; O2SAT 94; BMI 32.6
--- NOTE | 2023-01-11 07:54 | A.OFFPC_ITS ---
Vital Signs 01/11/23 07:54 Height 5 ft 2 in Weight 178 lb BMI 32.6 BP 130/88 Blood Pressure Location Lt brachial Position Sitting Pulse 59 Pulse Source Pulse Oximeter Pulse Oximetry (%) 94 Oxygen Delivery Method Room Air Intake Visit Reasons: PE Allergies No Known Allergies Allergy (Verified 01/11/23 08:04) Medication List - Last Reconciled 01/11/23 by Usman Segundo PA-C cholecalciferol (vitamin D3) (Vitamin D3) 50 mcg PO DAILY 90 days cyclobenzaprine 10 mg PO BEDTIME 15 days ezetimibe 10 mg PO DAILY 90 days fluoxetine 40 mg (2 x 20 mg) PO DAILY 90 days levothyroxine 75 mcg PO DAILY 90 days psyllium husk (Metamucil) 0.4 grams PO DAILY ropinirole 0.25 mg PO BEDTIME 90 days Saccharomyces boulardii (Probiotic (S.boulardii)) 250 mg PO DAILY triamcinolone acetonide 0.5% 1 appl topical BID 7 days Tobacco use date assessed: 08/10/22 Dental Screening Dental Screen Date: 01/11/23 Did you have a dental visit in the last 12 months?: Yes Did you have a dental problem in the last 6 months where you did not have access to dental care?: No Was dental information given to patient?: Patient has dentist HPI PE HPI Details Patient is a 62 -year-old female here for a PE. Patient has a past medical history significant for depression, hypothyroidism, hyperlipidemia, obesity, inflammatory bowel disease.. ? Hypothyroid Tsh normal, has been chemically and? clinically euthyroid. .. Obesity: Patient does understand her BMI is 30 will work on being more physically active and adapting to better eating habits to reduce her weight. . Hyperlipidemia:? Lipid panel has improved, total cholesterol 214 weight from 243.? LDL acceptable.? Will continue her on Zetia 10 mg daily. She has discontinue statin therapy due to thoughts of causing neuropathy in her lower extremities.' MAmmo : done in October 2022 BIRADS-1 .. CLINICAL RESEARCH ANALYST: Sees CLINICAL RESEARCH ANALYST PAP done 08/2021 - Normal. .. VAccine : UTD with Tdap, COVID And shingles, up-to-date with pneumonia vaccine .. Colonoscopy: Colonoscopy done in 2020 due to diarrhea and ileitis- biopsy taken pathology normal repeat 10 years, Of note patient was found to have? Ileitis on CT of abdomen though inflammatory bowel disease has not been confirmed. [facility] Medical History Terminal ileitis Restless leg syndrome Hypothyroidism Anxiety and depression Colon cancer screening Surgical History (Updated 01/11/23 @ 08:20 by Usman Segundo PA-C) History of colonoscopy History of tubal ligation Family History Father Prostate cancer Mother Celiac disease Breast cancer Brother In good health Daughter In good health Social History Housing: Condominium Alcohol intake: current Alcohol intake frequency: a few times a week Patient Tobacco Use Status: Former Tobacco user Quit Date: 1992 Tobacco use type: Cigarette e-Cigarette/Vaping Use: Never Used Second Hand Smoke Exposure: No service: No Current occupational status: employed 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 1. Little interest or pleasure in doing things: not at all 2. Feeling down, depressed, or hopeless: not at all 3. Trouble falling or staying asleep, or sleeping too much: not at all 4. Feeling tired or having little energy: not at all 5. Poor appetite or overeating: not at all 6. Feeling bad about yourself - or that you are a failure or have let yourself or your family down: not at all 7. Trouble concentrating on things, such as reading the newspaper or watching television: not at all 8. Moving or speaking so slowly that other people could have noticed. Or the opposite - being so fidgety or restless that you have been moving around a lot more than usual: not at all 9. Thoughts that you would be better off or of hurting yourself in some way: not at all Total score: 0 Depression Screening Interpretation: Negative 27320 - PHQ-9 Billing: Yes Source: Developed by Drs. Alan Austin, Matilda Wise, Adonis Olvera and colleagues, with an educational lev from [email or web address]. Thrive Questionnaire Date Thrive assessed: 08/10/22 AUDIT C Alcohol Use Questionnaire (AUDIT-C) 1. How often do you have a drink containing alcohol?: 2-4 times a month 2. How many drinks containing alcohol do you have on a typical day when you are drinking?: 1 or 2 3. How often do you have six or more drinks on one occasion?: Never Total Score: 2 JOHNATHAN-7 AMB Questionnaire JOHNATHAN-7 Date JOHNATHAN - 7 assessed: 08/10/22 Source: Developed by Drs. Alan Austin, Matilda Wise, Adonis Olvera and colleagues, with an educational lev from [email or web address]. Review of Systems Const Denies body aches, Denies chills, Denies excessive sweating, Denies fatigue, Denies fever(s) and Denies headache(s) Eyes Denies blurry vision ENT Denies dysphagia, Denies vertigo, Denies dizziness, Denies headache(s), Denies hearing loss and Denies tinnitus Card Denies chest pain, Denies chest pain with activity, Denies syncope, Denies irregular heart rhythm and Denies dyspnea Resp Denies chest congestion, Denies cough, Denies hemoptysis, Denies dyspnea and Denies wheezing GI Denies abdominal pain, Denies melena, Denies hematochezia, Denies coffee ground emesis, Denies dysphagia, Denies diarrhea, Denies nausea and Denies vomiting Denies urinary frequency, Denies dysuria, Denies urinary hesitancy and Denies urinary urgency Musc Denies arthralgias, Denies limited range of motion, Denies muscle cramps and Denies muscle weakness Skin/Breast Denies rash and Denies skin ulcer Neuro Denies Abnormal speech present, Denies confusion, Denies vertigo, Denies dizziness, Denies syncope, Denies headache(s), Denies memory loss and Denies seizure-like activity Psych Denies anxiety, Denies confusion, Denies depression, Denies memory loss, Denies panic attacks and Denies paranoia Endo Denies excessive sweating, Denies fatigue, Denies flushing, Denies polydipsia and Denies polyuria Aller/Immun Denies wheezing Physical exam (Primary Care) Vital Signs: Last Vital Signs Pulse 59 01/11/23 07:54 BP 130/88 01/11/23 07:54 Pulse Ox 94 01/11/23 07:54 Oxygen Delivery Method Room Air 01/11/23 07:54 BMI result Body Mass Index 32.6 BMI Assessment/Plan discussion: High Tobacco/Smoking Status: Tobacco use Status Tobacco use date assessed 08/10/22 01/11/23 07:58 Patient Tobacco Use Status Former Tobacco user 01/11/23 07:58 Tobacco use type Cigarette 01/11/23 07:58 e-Cigarette/Vaping Use Never Used 01/11/23 07:58 PHQ-9: PHQ-9 Score PHQ-9: Total score 0 01/11/23 07:58 Depression Screening Interpretation: Negative Thrive Assessment: Date of Thrive Assessment Date Thrive assessed 08/10/22 01/11/23 07:58 Const Other: Obese General: cooperative, comfortable, no acute distress, alert and awake; No confusion Orientation/consciousness: oriented to person, oriented to place, patient oriented x3 and No confusion HENMT Head: Yes normocephalic Ears: external ears normal and TM's normal bilaterally Face and sinus: No sinus tenderness Mouth: Normal oral and palatal mucosa present and tongue normal Teeth and gingiva: dentition normal and gingiva normal Throat: Yes posterior oropharynx normal, Yes tonsils normal and Yes uvula midline Eyes Conjunctivae: conjunctivae normal Sclerae: sclerae normal Pupils: Equal, round and reactive pupils present EOM: EOMs intact bilaterally Direct Ophthalmoscopy: No no photophobia Neck Neck: Yes no lymphadenopathy, No tender and Yes no JVD Thyroid: Thyroid normal Carotids: no bruits Chest Chest palpation & inspection: no tenderness Resp Effort & Inspection: normal respiratory effort, no audible wheezes, not labored and no stridor Auscultation: no crackles, no rales, no rhonchi and no wheezes Cardio Jugular venous distension: no JVD Rate: regular rate, not bradycardic and not tachycardic Rhythm: regular rhythm Bruits: no carotid bruits Peripheral pulses: Peripheral pulses 2+ throughout GI Inspection: Yes normal to inspection, No abdominal wall ecchymosis and No visible herniation Palpation (GI): Soft to palpation, nontender, no guarding, not rigid and No hepatosplenomegaly present Auscultation: normoactive bowel sounds General: Yes no CVA tenderness Back/Spine/Pelvis Back: no CVA tenderness and No back tenderness Cervical Spine: cervical ROM normal Thoracic/Lumbar Spine: thoracic and lumbar spine normal to inspection, straight leg raise negative bilaterally, No thoraco-lumbar ROM limited and No lumbar spinal tenderness Skin Lesions: no lesions Rashes: no rashes Wounds: no wounds Neuro General: oriented to person, oriented to place, patient oriented x3, CN's II-XI intact bilaterally and No confusion Cranial nerves: Yes Equal, round and reactive pupils present and Yes Normal accommodation reflex present Cognition (Neuro): normal cognition Speech: No Abnormal speech present Gait exam (Neuro): Normal gait present Motor exam (neuro): 5/5 motor strength present throughout Extrem Right upper extremity: full ROM; no cyanosis Left upper extremity: full ROM; no cyanosis Right lower extremity: no edema Left lower extremity: no edema Psych Appearance: grossly normal Mental Status: mental status grossly normal Affect: normal affect Attitude: cooperative Thought process: Normal thought process present Assessment and Plan Assessment & Plan (1) Annual physical exam: Code(s): Z00.00 - Encounter for general adult medical examination without abnormal findings (2) HLD (hyperlipidemia): Code(s): E78.5 - Hyperlipidemia, unspecified Qualifiers: Hyperlipidemia type: mixed hyperlipidemia Qualified Code(s): E78.2 - Mixed hyperlipidemia Plan: Patient's most recent lipid panel showing borderline high total cholesterol. Patient continues on Zetia as she has not been able to tolerate statin. She will continue on lifestyle modifications to reduce her cholesterol. Goal total cholesterol to be below 200. (3) Hypothyroid: Code(s): E03.9 - Hypothyroidism, unspecified Qualifiers: Hypothyroidism type: unspecified Qualified Code(s): E03.9 - Hypothyroidism, unspecified Plan: Patient's most recent TSH has been stable. She continues on levothyroxine 75 mcg. Weight has been stable. Will continue to follow TSH to assure normal. (4) RLS (restless legs syndrome): Code(s): G25.81 - Restless legs syndrome Plan: Continues with the use of ropinirole before bedtime with excellent relief of lower extremity discomforts. (5) Obese: Code(s): E66.9 - Obesity, unspecified Qualifiers: Obesity type: due to excess calories Obesity classification: adult class 1 (BMI 30 - 34.9) Serious obesity comorbidity presence: without serious comorbidity Body mass index: BMI 32.0-32.9 Qualified Code(s): E66.09 - Other obesity due to excess calories; Z68.32 - Body mass index [BMI] 32.0-32.9, adult Plan: Patient does understand her BMI is over 30 will continue working on being more physically active and adapting to better eating habits to reduce her weight. Orders: Orders Lipid Panel 6 Months E78.2 - Mixed hyperlipidemia Comprehensive [place]. Panel Fast 6 Months E78.2 - Mixed hyperlipidemia TSH reflex Free T4 6 Months E03.9 - Hypothyroidism, unspecified Complete Blood Count no Diff 6 Months E78.2 - Mixed hyperlipidemia Coding Level of Care Code Est Pt Prev Care 40-64y([id number]) Diagnoses Annual physical exam Z00.00 Mixed hyperlipidemia E78.2 Hyperlipidemia type: mixed hyperlipidemia Hypothyroidism, unspecified type E03.9 Hypothyroidism type: unspecified RLS (restless legs syndrome) G25.81 Class 1 obesity due to excess calories without serious comorbidity with body mass index (BMI) of 32.0 to 32.9 in adult E66.09; Z68.32 Obesity type: due to excess calories Obesity classification: adult class 1 (BMI 30 - 34.9) Serious obesity comorbidity presence: without serious comorbidity Body mass index: BMI 32.0-32.9
== END 2023-01-11 08:26 | disposition home or self-care (01) ==
PROVIDERS: PCP Physician Assistant; Visit Provider Physician Assistant
DX: Z00.00 Encounter for general adult medical examination without abnormal findings (principal); E03.9 Hypothyroidism, unspecified; E66.09 Other obesity due to excess calories; Z68.32 Body mass index [BMI] 32.0-32.9, adult; E78.2 Mixed hyperlipidemia; G25.81 Restless legs syndrome
CPT/HCPCS: 99396

== ENCOUNTER 2023-07-12 08:01 | Outpatient (REF) | payer BC, SELFPAY ==
[2023-07-12 08:49] LABS: Hematocrit 40.3 % (37.0-47.0); Hemoglobin 12.7 g/dl (12.0-16.0); Mean Corpuscular HGB Conc 31.5 g/dl (31.0-35.0); Mean Corpuscular Volume 88.8 fL (80.0-98.0); Mean Platelet Volume 9.4 fL (9.4-12.3); Platelet Count 214 X10*3/uL (160-400); Red Blood Count 4.54 X10*6/uL (4.20-5.50); White Blood Count 7.3 X10*3/uL (4.8-10.8)
[2023-07-12 09:45] LABS: Alanine Aminotransferase 61 U/L (0-31); Albumin Level 4.1 g/dL (3.5-5.0); Alkaline Phosphatase 102 U/L (39-117); Anion Gap 10 (12-20); Aspartate Amino Transferase 51 U/L (5-31); Bilirubin Total 0.4 mg/dL (0.0-1.0); Blood Urea Nitrogen 11 mg/dL (9-16); Calcium 9.2 mg/dL (8.4-10.2); Carbon Dioxide 28 mmol/L (22-29); Chloride 107 mmol/L (96-108); Cholesterol 218 mg/dL (<200); Estimated Glomerular Filt Rate > 60; Glucose Fasting 82 mg/dL (60-99); HDL Cholesterol 69 mg/dL (>40); LDL Cholesterol Calculated 128 mg/dL (<100); Potassium 5.1 mmol/L (3.3-5.1); Sodium 140 mmol/L (135-145); Triglycerides 106 mg/dL (<150)
[2023-07-12 09:56] LABS: TSH reflex Free T4 2.31 uIU/mL (0.32-4.0)
== END 2023-07-12 08:02 | disposition home or self-care (01) ==
LOC: HO.LAB 08:01
PROVIDERS: PCP Physician Assistant; Visit Provider Physician Assistant
DX: E03.9 Hypothyroidism, unspecified (principal); E78.2 Mixed hyperlipidemia
CPT/HCPCS: 36415; 80053; 80061; 84443; 85027

== ENCOUNTER 2023-07-12 08:24 | Outpatient (AMB) | payer BC, SELFPAY ==
--- NOTE | 2023-07-12 08:27 | A.OFFPC_ITS ---
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 Accompanied by: Self / Same As Patient Allergies No Known Allergies Allergy (Verified 07/12/23 08:38) Medication List - Last Reconciled 07/12/23 by Usman Segundo PA-C cholecalciferol (vitamin D3) (Vitamin D3) 50 mcg PO DAILY 90 days cyclobenzaprine 10 mg PO BEDTIME 15 days ezetimibe 10 mg PO DAILY 90 days fluoxetine 40 mg (2 x 20 mg) PO DAILY 90 days gabapentin 300 mg PO BEDTIME 30 days levothyroxine 75 mcg PO DAILY 90 days psyllium husk (Metamucil) 0.4 grams PO DAILY ropinirole 0.25 mg PO BEDTIME 90 days triamcinolone acetonide 0.5% 1 appl topical BID 7 days Tobacco use date assessed: 08/10/22 HPI f/u Hypothyroid/ HLD HPI Details Patient is a 63 -year-old female here today for follow-up visit. Patient has a past medical history significant for depression, hypothyroidism, hyperlipidemia, obesity, inflammatory bowel disease.. ? Restless leg syndrome: Continues to suffer with restless legs syndrome which has gotten worse over the last year. She has started gabapentin at night which has been helpful though reports having some RLS symptoms happen in early afternoon hours. Was on ropinirole in the past though loss of effectiveness. Will be following up with neurologist for further recommendations. PLAN: Will try ? Hypothyroid Tsh normal, has been chemically and? clinically euthyroid. .. Obesity: Patient does understand her BMI is 30 will work on being more physically active and adapting to better eating habits to reduce her weight. . Hyperlipidemia:? Lipid panel has improved, total cholesterol 214 weight from 243.? LDL acceptable.? Will continue her on Zetia 10 mg daily. She has discontinue statin therapy due to thoughts of causing neuropathy in her lower extremities. ON LICENSE OF [facility] Medical History Terminal ileitis Restless leg syndrome Hypothyroidism Anxiety and depression Colon cancer screening Surgical History (Updated 01/11/23 @ 08:20 by Usman Segundo PA-C) History of colonoscopy History of tubal ligation Family History Father Prostate cancer Mother Celiac disease Breast cancer Brother In good health Daughter In good health Social History Housing: [facility] Alcohol intake: current Alcohol intake frequency: a few times a week Patient Tobacco Use Status: Former Tobacco user Quit Date: 1992 Tobacco use type: Cigarette e-Cigarette/Vaping Use: Never Used Second Hand Smoke Exposure: No service: No Current occupational status: employed 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 1. Little interest or pleasure in doing things: not at all 2. Feeling down, depressed, or hopeless: not at all 3. Trouble falling or staying asleep, or sleeping too much: not at all 4. Feeling tired or having little energy: not at all 5. Poor appetite or overeating: not at all 6. Feeling bad about yourself - or that you are a failure or have let yourself or your family down: not at all 7. Trouble concentrating on things, such as reading the newspaper or watching television: not at all 8. Moving or speaking so slowly that other people could have noticed. Or the opposite - being so fidgety or restless that you have been moving around a lot more than usual: not at all 9. Thoughts that you would be better off or of hurting yourself in some way: not at all Total score: 0 Depression Screening Interpretation: Negative Depression Screening Done: Yes 10252 - PHQ-9 Billing: Yes Source: Developed by Drs. Alan Austin, Matilda Wise, Adonis Olvera and colleagues, with an educational lev from [employer] Thrive Questionnaire Date Thrive assessed: 07/12/23 I am a: Patient What is your living situation today?: I have a steady place to live Within the past 12 months, did the food you bought not last and you didn't have the money to get more?: Never true Within the past 12 months, did you worry whether your food would run out before you got money to buy more?: Never true Do you have trouble paying for medicines?: No Do you have trouble getting transportation to medical appointments?: No Do you have trouble paying your heating and electricity bill?: No Do you have trouble taking care of your child, family member or friend?: No Do you have trouble with day-to-day activities such as bathing, preparing meals, shopping, managing finances, etc.?: No Are you currently unemployed and looking for a job?: No Are you interested in more education?: No Please select the resources that you would like help with: None THRIVE Score: 0 AUDIT C Alcohol Use Questionnaire (AUDIT-C) 1. How often do you have a drink containing alcohol?: Never 2. How many drinks containing alcohol do you have on a typical day when you are drinking?: 1 or 2 3. How often do you have six or more drinks on one occasion?: Never Total Score: 0 JOHNATHAN-7 AMB Questionnaire JOHNATHAN-7 Date JOHNATHAN - 7 assessed: 07/12/23 Feeling nervous, anxious, or on edge: 0 = Not at all Not being able to stop or control worryin = Not at all Worrying too much about different things: 0 = Not at all Trouble relaxin = Not at all Being so restless that it is hard to sit still: 0 = Not at all Becoming easily annoyed or irritable: 0 = Not at all Feeling afraid as if something awful might happen: 0 = Not at all Total JOHNATHAN-7 score (0-4 normal; 5-9 mild; 10-14 moderate; 15-21 severe): 0 Source: Developed by Drs. Alan Austin, Matilda Wise, Adonis Olvera and colleagues, with an educational lev from [employer].. JOHNATHAN-7 Assessment Billing JOHNATHAN-7 Assessment Tool: JOHNATHAN-7 Assessment 58302 Review of Systems Const Denies headache(s) Eyes Denies loss of vision ENT Denies vertigo, Denies dizziness, Denies headache(s) and Denies sore throat Card Denies chest pain, Denies leg edema and Denies lightheadedness Resp Denies cough, Denies hemoptysis and Denies wheezing GI Denies abdominal pain, Denies melena, Denies constipation, Denies diarrhea and Denies vomiting Denies urinary frequency, Denies dysuria and Denies urinary urgency Musc Denies arthralgias, Denies joint swelling, Denies numbness and Denies tingling Neuro Denies Abnormal speech present, Denies behavioral changes, Denies vertigo, Denies dizziness, Denies headache(s), Denies loss of vision, Denies memory loss, Denies numbness and Denies tingling Psych Denies anxiety, Denies behavioral changes, Denies depression, Denies memory loss and Denies panic attacks Mark/Lymph Denies easy bleeding and Denies easy bruising Aller/Immun Denies wheezing Physical exam (Primary Care) Vital Signs: Last Vital Signs BP 126/82 07/12/23 08:28 Tobacco/Smoking Status: Tobacco use Status Tobacco use date assessed 08/10/22 07/12/23 08:36 Patient Tobacco Use Status Former Tobacco user 07/12/23 08:36 Tobacco use type Cigarette 07/12/23 08:36 e-Cigarette/Vaping Use Never Used 07/12/23 08:36 PHQ-9: PHQ-9 Score PHQ-9: Total score 0 07/12/23 10:54 Depression Screening Interpretation: Negative Thrive Assessment: Date of Thrive Assessment Date Thrive assessed 07/12/23 07/12/23 08:38 Const General: healthy appearing, no acute distress, alert and awake Nutritional Appearance: well nourished Orientation/consciousness: oriented to person, oriented to place and oriented to time HENMT Ears: TM's normal bilaterally General nose exam: Normal nasal mucous membranes and turbinates present Eyes Conjunctivae: conjunctivae normal Sclerae: sclerae normal Pupils: Equal, round and reactive pupils present Neck Neck: Yes no lymphadenopathy and Yes no JVD Thyroid: Thyroid normal Carotids: no bruits Resp Effort & Inspection: normal respiratory effort and not tachypneic Auscultation: no crackles, no rales, no rhonchi and no wheezes Cardio Rate: regular rate Rhythm: regular rhythm Heart sounds: no murmurs and normal S1 and S2 GI Palpation (GI): Soft to palpation, nontender, no hepatomegaly and no splenomegaly Auscultation: normal bowel sounds Skin General skin exam: no rashes or lesions noted and dry skin Neuro General: oriented to person, oriented to place and oriented to time Cranial nerves: Yes Equal, round and reactive pupils present Speech: No Abnormal speech present Gait exam (Neuro): Normal gait present Motor exam (neuro): no tremor noted Extrem Right upper extremity: full ROM Left upper extremity: full ROM Right lower extremity: full ROM; no edema Left lower extremity: full ROM; no edema Psych Mental Status: mental status grossly normal Speech and movement: Normal speech and movement present Affect: normal affect Attitude: cooperative Thought process: Normal thought process present Assessment and Plan Assessment & Plan (1) RLS (restless legs syndrome): Code(s): G25.81 - Restless legs syndrome Plan: Patient continues to suffer with restless legs has gotten a bit worse as of late . She reports she has been having restless leg syndrome almost her entire life.. She reports more symptoms during the earlier afternoons as well. She has been on gabapentin which has been helpful . She will be following up with her neurologist. We plan to add an additional gabapentin 100 mg dose at 13:00 and her regular 300 mg dose at night. (2) HLD (hyperlipidemia): Code(s): E78.5 - Hyperlipidemia, unspecified Qualifiers: Hyperlipidemia type: mixed hyperlipidemia Qualified Code(s): E78.2 - Mixed hyperlipidemia Plan: Patient's most recent lipid panel showing borderline high total cholesterol. Patient continues on Zetia as she has not been able to tolerate statin. She will continue on lifestyle modifications to reduce her cholesterol. Goal total cholesterol to be below 200. (3) Hypothyroid: Code(s): E03.9 - Hypothyroidism, unspecified Qualifiers: Hypothyroidism type: unspecified Qualified Code(s): E03.9 - Hypothyroidism, unspecified Plan: Patient's most recent TSH has been stable. She continues on levothyroxine 75 mcg. Weight has been stable. Will continue to follow TSH to assure normal. (4) Obese: Code(s): E66.9 - Obesity, unspecified Qualifiers: Body mass index: BMI 32.0-32.9 Obesity classification: adult class 1 (BMI 30 - 34.9) Obesity type: due to excess calories Serious obesity comorbidity presence: without serious comorbidity Qualified Code(s): E66.09 - Other obesity due to excess calories; Z68.32 - Body mass index [BMI] 32.0-32.9, adult Plan: Patient does understand her BMI is over 30 will continue working on being more physically active and adapting to better eating habits to reduce her weight. Medications: New gabapentin take gabapentin 100 at noon time, 300 mg at bedtime 100 mg PO DAILY 30 caps 3RF 30 days G25.81 - Restless legs syndrome On Hold ropinirole Hold Comment: Doctor's Order 0.25 mg PO BEDTIME 90 days 90 tabs 2RF G25.81 - Restless legs syndrome Coding Level of Care Code Est Pt Level 4 (48155) Diagnoses RLS (restless legs syndrome) G25.81 Mixed hyperlipidemia E78.2 Hyperlipidemia type: mixed hyperlipidemia Hypothyroidism, unspecified type E03.9 Hypothyroidism type: unspecified Class 1 obesity due to excess calories without serious comorbidity with body mass index (BMI) of 32.0 to 32.9 in adult E66.09; Z68.32 Body mass index: BMI 32.0-32.9 Obesity classification: adult class 1 (BMI 30 - 34.9) Obesity type: due to excess calories Serious obesity comorbidity presence: without serious comorbidity Additional Codes JOHNATHAN-7 Assessment Billing - JOHNATHAN-7 Assessment Tool: JOHNATHAN-7 Assessment 35330 ([id number])
[2023-07-12 08:28] VITALS: BP 126/82
== END 2023-07-12 08:56 | disposition home or self-care (01) ==
PROVIDERS: PCP Physician Assistant; Visit Provider Physician Assistant
DX: G25.81 Restless legs syndrome (principal); E78.2 Mixed hyperlipidemia; E03.9 Hypothyroidism, unspecified; E66.09 Other obesity due to excess calories; Z68.32 Body mass index [BMI] 32.0-32.9, adult
CPT/HCPCS: 99214

== ENCOUNTER 2023-08-02 09:08 | Outpatient (REF) | payer BC, SELFPAY ==
[2023-08-02 10:10] LABS: Alanine Aminotransferase 53 U/L (0-31); Albumin Level 4.1 g/dL (3.5-5.0); Alkaline Phosphatase 105 U/L (39-117); Aspartate Amino Transferase 45 U/L (5-31); Bilirubin Direct 0.2 mg/dL (0.0-0.5); Bilirubin Total 0.4 mg/dL (0.0-1.0)
== END 2023-08-02 09:09 | disposition home or self-care (01) ==
LOC: HO.LAB 09:08
PROVIDERS: PCP Physician Assistant; Visit Provider Physician Assistant
DX: R74.8 Abnormal levels of other serum enzymes (principal)
CPT/HCPCS: 36415; 80076

== ENCOUNTER 2023-09-13 09:08 | Outpatient (REF) | payer OTHER, SELFPAY ==
[2023-09-13 10:39] LABS: Alanine Aminotransferase 26 U/L (0-31); Alkaline Phosphatase 88 U/L (39-117); Aspartate Amino Transferase 24 U/L (5-31); Bilirubin Direct 0.2 mg/dL (0.0-0.5); Bilirubin Total 0.4 mg/dL (0.0-1.0); Total Protein 6.9 g/dL (6.5-8.0)
== END 2023-09-13 09:09 | disposition home or self-care (01) ==
LOC: HO.LAB 09:08
PROVIDERS: Visit Provider Physician Assistant
DX: R74.8 Abnormal levels of other serum enzymes (principal)
CPT/HCPCS: 36415; 80076

== ENCOUNTER 2023-10-04 10:43 | Outpatient (AMB) | payer OTHER, SELFPAY ==
--- NOTE | 2023-10-04 11:16 | A.OFFVIS_ITS ---
Vital Signs 10/04/23 11:42 Height 5 ft 2 in Weight 178 lb BMI 32.6 Intake Visit Reasons: O/V RT knee O.A pain Intake Note: Bria is a 62 year old female who presents today for a follow up of right knee pain. Patient reports last gel injection in 04/2021 provided her with good relief until about 6 months ago, her pain returned. She is requesting to repeat gel injection in her right knee. Allergies No Known Allergies Allergy (Verified 10/04/23 15:31) HPI HPI O/V RT knee O.A pain: Details: 63-year-old female who returns to the office today for a follow-up of right knee pain. She states she has pain in her right knee that is aggravated with stair use. She had her last gel injection on 04/21/21 that provided her relief until 6 months ago. She would like to repeat the injection. [facility] Medical History Terminal ileitis Restless leg syndrome Hypothyroidism Anxiety and depression Colon cancer screening Surgical History (Updated 01/11/23 @ 08:20 by Usman Segundo PA-C) History of colonoscopy History of tubal ligation Family History Father Prostate cancer Mother Celiac disease Breast cancer Brother In good health Daughter In good health Social History Housing: Condominium Alcohol intake: current Alcohol intake frequency: a few times a week Patient Tobacco Use Status: Former Tobacco user Tobacco use type: Cigarette e-Cigarette/Vaping Use: Never Used Second Hand Smoke Exposure: No service: No Current occupational status: employed 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 Lateral retropatellar tenderness present. Full ROM with crepitus. Negative Dhara?s. No ligamentous laxity. NVI. Assessment & Plan Assessment & Plan (1) Osteoarthritis of left knee: Code(s): M17.12 - Unilateral primary osteoarthritis, left knee Category: Medical Plan She has had success with gel injection in the past and would like to repeat the visco supplementation. I did offer her steroid injection which she declined as it did not help her in the past. She will see me back once approved for injection. Orders: Orders XR knee RT 3V 10/04/23 M17.11 - Unilateral primary osteoarthritis, right knee XR hip RT min 2V 10/04/23 M25.551 - Pain in right hip Patient Instructions: Scribed for Ileana Friedman PA-C, by Prakash Feliz biomedical engineering supervisor, on 10/04/2023 at 11:00 AM EST.? I, Ileana Friedman PA-C, have personally reviewed and agree with the information entered by the scribe. Coding Level of Care Code Est Pt Level 3 (69142) Diagnoses Osteoarthritis of left knee M17.12
[2023-10-04 11:42] VITALS: BMI 32.6
== END 2023-10-04 12:39 | disposition home or self-care (01) ==
PROVIDERS: PCP Physician Assistant; Visit Provider Physician Assistant
DX: M17.12 Unilateral primary osteoarthritis, left knee (principal)
CPT/HCPCS: 99213

== ENCOUNTER 2023-10-04 11:47 | Outpatient (REF) | payer OTHER, SELFPAY ==
--- NOTE | ~2023-10-04 | XR_ITS ---
EXAMINATION: XR RIGHT KNEE XR RIGHT HIP CLINICAL INFORMATION: Unilateral primary osteoarthritis right knee. Pain in right hip. TECHNIQUE: AP view of the pelvis and 2 views of the right knee. AP standing view of bilateral knees as well as sunrise and lateral views of the right knee. COMPARISON: Left knee 08/10/2022. Right hip 04/14/2021 with pelvis. FINDINGS: RIGHT HIP: Asymmetric degenerative changes in the left sacroiliac joint greater than right. Pubic symphysis is maintained. Mild joint space narrowing with hypertrophic change in the right hip. Alignment maintained. Mild degenerative changes on the single AP view of the left hip. Right knee: Single AP standing view of the left knee demonstrates mild narrowing of the medial compartment. Right knee: No significant joint effusion. Mild narrowing of the medial and patellofemoral compartments. Tiny medial marginal osteophytes. XR/XR hip RT min 2V IMPRESSION: 1. Mild degenerative changes in the right hip. 2. Mild degenerative changes right knee. 3. Asymmetric degenerative changes left sacroiliac joint.
--- NOTE | ~2023-10-04 | XR_ITS ---
EXAMINATION: XR RIGHT KNEE XR RIGHT HIP CLINICAL INFORMATION: Unilateral primary osteoarthritis right knee. Pain in right hip. TECHNIQUE: AP view of the pelvis and 2 views of the right knee. AP standing view of bilateral knees as well as sunrise and lateral views of the right knee. COMPARISON: Left knee 08/10/2022. Right hip 04/14/2021 with pelvis. FINDINGS: RIGHT HIP: Asymmetric degenerative changes in the left sacroiliac joint greater than right. Pubic symphysis is maintained. Mild joint space narrowing with hypertrophic change in the right hip. Alignment maintained. Mild degenerative changes on the single AP view of the left hip. Right knee: Single AP standing view of the left knee demonstrates mild narrowing of the medial compartment. Right knee: No significant joint effusion. Mild narrowing of the medial and patellofemoral compartments. Tiny medial marginal osteophytes. XR/XR knee RT 3V IMPRESSION: 1. Mild degenerative changes in the right hip. 2. Mild degenerative changes right knee. 3. Asymmetric degenerative changes left sacroiliac joint.
== END 2023-10-04 11:48 | disposition home or self-care (01) ==
LOC: HO.HOSX 11:47
PROVIDERS: Visit Provider Physician Assistant
DX: M17.11 Unilateral primary osteoarthritis, right knee (principal); M25.551 Pain in right hip
CPT/HCPCS: 73502; 73562

== ENCOUNTER 2023-10-25 08:38 | Outpatient (REF) | payer OTHER, SELFPAY | END 2023-10-25 08:39 | disposition home or self-care (01) | LOC: HO.MAMMO 08:38 | PROVIDERS: PCP Physician Assistant; Visit Provider Physician Assistant | DX: Z12.31 Encounter for screening mammogram for malignant neoplasm of breast (principal) | CPT/HCPCS: 77063; 77067 ==

== ENCOUNTER → 2023-10-25 08:45 | Outpatient (BNV) | payer OTHER, SELFPAY | PROVIDERS: PCP Physician Assistant; Visit Provider Radiology Diagnostic Radiology | DX: Z12.31 Encounter for screening mammogram for malignant neoplasm of breast (principal) | CPT/HCPCS: 77063; 77067 ==

== ENCOUNTER 2023-11-21 13:43 | Outpatient (AMB) | payer OTHER, SELFPAY ==
--- NOTE | 2023-11-21 14:05 | A.OFFVIS_ITS ---
Intake Visit Reasons: OV- Right knee GelOne Intake Note: Bria a 63 year old female who presents today for a right knee GelOne injection. Allergies No Known Allergies Allergy (Verified 11/21/23 14:09) Medication List - Last Reconciled 11/21/23 by Ileana Friedman PA-C cholecalciferol (vitamin D3) (Vitamin D3) 50 mcg PO DAILY 90 days cyclobenzaprine 10 mg PO BEDTIME 15 days ezetimibe 10 mg PO DAILY 90 days fluoxetine 40 mg (2 x 20 mg) PO DAILY 90 days gabapentin 300 mg PO BEDTIME 30 days gabapentin 100 mg PO DAILY 30 days levothyroxine 75 mcg PO DAILY 90 days psyllium husk (Metamucil) 0.4 grams PO DAILY ropinirole 0.25 mg PO BEDTIME 90 days triamcinolone acetonide 0.5% 1 appl topical BID 7 days HPI HPI OV- Right knee GelOne: Details: 63-year-old female who returns to the office today for right knee GelOne injection. [facility] Medical History Terminal ileitis Restless leg syndrome Hypothyroidism Anxiety and depression Colon cancer screening Surgical History History of colonoscopy History of tubal ligation Family History Father Prostate cancer Mother Celiac disease Breast cancer Brother In good health Daughter In good health Social History Housing: Condominium Alcohol intake: current Alcohol intake frequency: a few times a week Patient Tobacco Use Status: Former Tobacco user Tobacco use type: Cigarette e-Cigarette/Vaping Use: Never Used Second Hand Smoke Exposure: No service: No Current occupational status: employed 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 Lateral retropatellar tenderness present. Full ROM with crepitus. Negative Dhara?s. No ligamentous laxity. NVI. Office Procedures Joint Injection/Drain Joint Injection/Drain Details: gel one injection Primary Site: right knee Prep: site was prepped using aseptic technique, ethochloride spray was applied and injection warnings given Injected: in the joint Procedure: The patient tolerated the procedure well Coding 42695 - Glenohumeral/Tronchanteric Bursa/Intraarticular Procedure code (CPT) selection complete Assessment & Plan Assessment & Plan (1) Primary osteoarthritis of right knee: Code(s): M17.11 - Unilateral primary osteoarthritis, right knee Category: Medical Plan We discussed options today, which include GelOne injection. The patient did consent to move forward with the right knee GelOne injection, which was tolerated well. I recommended rest, ice, and elevation and OTC anti- inflammatories as needed for discomfort. If symptoms persist or worsen over the next 6-8 weeks, patient will contact the office, otherwise follow-up as needed. ? Patient Instructions: Scribed for Ileana Friedman PA-C, by Prakash Feliz medical attendant, on 11/21/2023 at 2:00 PM EST.? I, Ileana Friedman PA-C, have personally reviewed and agree with the information entered by the scribe. Coding Level of Care Code Procedure Only Diagnoses Primary osteoarthritis of right knee M17.11 CPT Codes Coding - Joint 7: 05317 - Glenohumeral/Tronchanteric Bursa/Intraarticular ([id number])
== END 2023-11-21 14:17 | disposition home or self-care (01) ==
PROVIDERS: PCP Physician Assistant; Visit Provider Physician Assistant
DX: M17.11 Unilateral primary osteoarthritis, right knee (principal)
CPT/HCPCS: 20610

== ENCOUNTER → 2023-11-21 13:43 | Outpatient (BNVA) | payer OTHER, SELFPAY | PROVIDERS: PCP Physician Assistant; Visit Provider Physician Assistant | DX: M17.11 Unilateral primary osteoarthritis, right knee (principal) | CPT/HCPCS: 20610; J7326 ==

== ENCOUNTER 2024-01-10 09:48 | Outpatient (AMB) | payer OTHER, SELFPAY ==
--- NOTE | 2024-01-10 10:05 | MHC.OFFVIS ---
Vital Signs 01/10/24 10:06 Height 5 ft 2 in Weight 178 lb BMI 32.6 Intake Visit Reasons: Newprob-Pain in right hip/follow up Intake Note: Bria a 63 year old female who presents today for an evaluation of right hip pain. Patient reports pain has been present fo. ? r right hip pain no Injury. She has tried Ibuprofen and Tylenol with heating pad to relieve the pain. Allergies No Known Allergies Allergy (Verified 01/10/24 10:08) Medication List - Last Reconciled 01/10/24 by Ileana Friedman PA-C cholecalciferol (vitamin D3) (Vitamin D3) 50 mcg PO DAILY 90 days cyclobenzaprine 10 mg PO BEDTIME 15 days ezetimibe 10 mg PO DAILY 90 days fluoxetine 40 mg (2 x 20 mg) PO DAILY 90 days gabapentin 300 mg PO BEDTIME 30 days gabapentin 100 mg PO DAILY 30 days levothyroxine 75 mcg PO DAILY 90 days psyllium husk (Metamucil) 0.4 grams PO DAILY ropinirole 0.25 mg PO BEDTIME 90 days triamcinolone acetonide 0.5% 1 appl topical BID 7 days HPI HPI Newprob-Pain in right hip/follow up: Details: 63-year-old female who presents to the office today for an evaluation of right hip pain for about 2 months. She has not had any injury. She reports she has sudden episodes of pain that lasts for 2 weeks. She describes the pain as constant achy pain at the lateral aspect of her hip that is aggravated with laying and activities. She denies any groin pain. She has not had any physical therapy in the past however she does exercises and stretching at home. She has tried ibuprofen and Tylenol with heating pad to relieve her pain. [facility] Medical History Terminal ileitis Restless leg syndrome Hypothyroidism Anxiety and depression Colon cancer screening Surgical History History of colonoscopy History of tubal ligation Family History Father Prostate cancer Mother Celiac disease Breast cancer Brother In good health Daughter In good health Social History Housing: Condominium Alcohol intake: current Alcohol intake frequency: a few times a week Patient Tobacco Use Status: Former Tobacco user Tobacco use type: Cigarette e-Cigarette/Vaping Use: Never Used Second Hand Smoke Exposure: No service: No Current occupational status: employed 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 No pain with ROM of the hip. Pain along the greater trochanter. No pain with hip flexion or abduction. Negative tenderness along the SI joint, Negative SLR. NVI. Assessment & Plan Assessment & Plan (1) Trochanteric bursitis, right hip: Code(s): M70.61 - Trochanteric bursitis, right hip Category: Medical Plan I offered her a course of formal physical therapy which she declined. She would work on exercises on her own. I recommend use of anti-inflammatories as needed and she will contact the office if she has any concerns such as increased pain or discomfort and we can proceed with formal physical therapy or steroid injection. She is content with this plan and will see me back as needed. Patient Instructions: Scribed for Ileana Friedman PA-C, by Prakash Feliz medical radiation tech, on 01/10/2024 at 10:15 AM EST.? I, Ileana Friedman PA-C, have personally reviewed and agree with the information entered by the scribe. Coding Level of Care Code Est Pt Level 3 (51778) Diagnoses Trochanteric bursitis, right hip M70.61
[2024-01-10 10:06] VITALS: BMI 32.6
== END 2024-01-10 12:41 | disposition home or self-care (01) ==
PROVIDERS: PCP Physician Assistant; Visit Provider Physician Assistant
DX: M70.61 Trochanteric bursitis, right hip (principal)
CPT/HCPCS: 99213

== ENCOUNTER → 2024-01-10 09:48 | Outpatient (BNVA) | payer OTHER, SELFPAY | PROVIDERS: PCP Physician Assistant; Visit Provider Physician Assistant ==

== ENCOUNTER 2024-01-17 10:45 | Outpatient (AMB) | payer OTHER, SELFPAY ==
--- NOTE | 2024-01-17 10:47 | A.OFFPC_ITS ---
Vital Signs 01/17/24 10:52 Height 5 ft 2 in Weight 179 lb BMI 32.7 BP 130/70 Blood Pressure Location Lt brachial Position Sitting Pulse 84 Pulse Source Pulse Oximeter Pulse Oximetry (%) 94 Oxygen Delivery Method Room Air Intake Visit Reasons: WeightLoss Intake Note: Patient is here today for a physical exam and to discuss weight loss medication. 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 Required: No Accompanied by: Self / Same As Patient Allergies No Known Allergies Allergy (Verified 01/17/24 11:14) Medication List - Last Reconciled 01/17/24 by Usman Segundo PA-C cholecalciferol (vitamin D3) (Vitamin D3) 50 mcg PO DAILY 90 days cyclobenzaprine 10 mg PO BEDTIME 15 days ezetimibe 10 mg PO DAILY 90 days fluoxetine 40 mg (2 x 20 mg) PO DAILY 90 days gabapentin 300 mg PO BEDTIME 30 days gabapentin 100 mg PO DAILY 30 days levothyroxine 75 mcg PO DAILY 90 days psyllium husk (Metamucil) 0.4 grams PO DAILY ropinirole 0.25 mg PO BEDTIME 90 days triamcinolone acetonide 0.5% 1 appl topical BID 7 days Tobacco use date assessed: 01/17/24 Dental Screening Dental Screen Date: 01/17/24 Did you have a dental visit in the last 12 months?: Yes Did you have a dental problem in the last 6 months where you did not have access to dental care?: No Was dental information given to patient?: Patient has dentist HPI WeightLoss HPI Details Patient is a 63 -year-old female here today for routine annual physical Patient has a past medical history significant for depression, hypothyroidism, hyperlipidemia, obesity, inflammatory bowel disease.. ? Hypothyroid Tsh normal, has been chemically and? clinically euthyroid. .. Obesity: Today's BMI at 32. Patient has had a very difficult time losing weight on her own. She is interested in weight loss medication. .. Restless leg syndrome: Continues with gabapentin 400 mg daily with good effect. .. Elevated liver enzymes: Was due to taking Tylenol daily for her knee pain thus has reduced her Tylenol. Liver enzymes have normalized .. Obesity: Patient does understand her BMI is 30 and has been working on being more physically active and adapting to better eating habits though has not lost any weight.. She is interested in starting a weight loss medication. . Hyperlipidemia:? Lipid panel has improved, total cholesterol 214 weight from 243.? LDL acceptable.? Will continue her on Zetia 10 mg daily. She has discontinue statin therapy due to thoughts of causing neuropathy in her lower extremities. Continue to hold statin for now, we hope with weight loss her cholesterol will even improved. MAmmo : done in October 2023 BIRADS-1 .. 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 .. VAccine : UTD with Tdap, COVID And shingles, up-to-date with pneumonia vaccine .. Colonoscopy: Colonoscopy done in 2020 due to diarrhea and ileitis- biopsy taken pathology normal repeat 10 years, Of note patient was found to have? Ileitis on CT of abdomen though inflammatory bowel disease has not been confirmed. [facility] Medical History (Updated 01/17/24 @ 11:56 by Usman Segundo PA-C) Vitamin D deficiency Terminal ileitis Restless leg syndrome Hypothyroidism Anxiety and depression Colon cancer screening Surgical History History of colonoscopy History of tubal ligation Family History Father Prostate cancer Mother Celiac disease Breast cancer Brother In good health Daughter In good health Social History (Updated 01/17/24 @ 11:18 by Usman Segundo PA-C) Housing: Condominium Alcohol intake: current Alcohol intake frequency: a few times a month Patient Tobacco Use Status: Former Tobacco user Tobacco use type: Cigarette e-Cigarette/Vaping Use: Never Used Second Hand Smoke Exposure: No service: No Current occupational status: employed 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 1. Little interest or pleasure in doing things: not at all 2. Feeling down, depressed, or hopeless: not at all 3. Trouble falling or staying asleep, or sleeping too much: not at all 4. Feeling tired or having little energy: not at all 5. Poor appetite or overeating: not at all 6. Feeling bad about yourself - or that you are a failure or have let yourself or your family down: not at all 7. Trouble concentrating on things, such as reading the newspaper or watching television: not at all 8. Moving or speaking so slowly that other people could have noticed. Or the opposite - being so fidgety or restless that you have been moving around a lot more than usual: not at all 9. Thoughts that you would be better off or of hurting yourself in some way: not at all Total score: 0 Depression Screening Interpretation: Negative Depression Screening Done: Yes [id number] - PHQ-9 Billing: Yes Source: Developed by Drs. Alan Austin, Matilda Wise, Adonis Olvera and colleagues, with an educational lev from [employer]. Thrive Questionnaire Date Thrive assessed: 01/17/24 I am a: Patient What is your living situation today?: I have a steady place to live Within the past 12 months, did the food you bought not last and you didn't have the money to get more?: Never true Within the past 12 months, did you worry whether your food would run out before you got money to buy more?: Never true Do you have trouble paying for medicines?: No Do you have trouble getting transportation to medical appointments?: No Do you have trouble paying your heating and electricity bill?: No Do you have trouble taking care of your child, family member or friend?: No Do you have trouble with day-to-day activities such as bathing, preparing meals, shopping, managing finances, etc.?: No Are you currently unemployed and looking for a job?: No Are you interested in more education?: No Please select the resources that you would like help with: None Currently or been in a relationship where the following occur: No concerns reported THRIVE Score: 0 AUDIT C Alcohol Use Questionnaire (AUDIT-C) 1. How often do you have a drink containing alcohol?: Never 2. How many drinks containing alcohol do you have on a typical day when you are drinking?: 1 or 2 3. How often do you have six or more drinks on one occasion?: Never Total Score: 0 JOHNATHAN-7 AMB Questionnaire JOHNATHAN-7 Date JOHNATHAN - 7 assessed: 01/17/24 Feeling nervous, anxious, or on edge: 0 = Not at all Not being able to stop or control worryin = Not at all Worrying too much about different things: 0 = Not at all Trouble relaxin = Not at all Being so restless that it is hard to sit still: 0 = Not at all Becoming easily annoyed or irritable: 0 = Not at all Feeling afraid as if something awful might happen: 0 = Not at all Total JOHNATHAN-7 score (0-4 normal; 5-9 mild; 10-14 moderate; 15-21 severe): 0 Source: Developed by Drs. Alan Austin, Matilda Wise, Adonis Olvrea and colleagues, with an educational lev from [employer]. JOHNATHAN-7 Assessment Billing JOHNATHAN-7 Assessment Tool: JOHNATHAN-7 Assessment [id number] Review of Systems Const Denies body aches, Denies chills, Denies excessive sweating, Denies fatigue, Denies fever(s) and Denies headache(s) Eyes Denies blurry vision ENT Denies dysphagia, Denies vertigo, Denies dizziness, Denies headache(s), Denies hearing loss and Denies tinnitus Card Denies chest pain, Denies chest pain with activity, Denies syncope, Denies irregular heart rhythm and Denies dyspnea Resp Denies chest congestion, Denies cough, Denies hemoptysis, Denies dyspnea and Denies wheezing GI Denies abdominal pain, Denies melena, Denies hematochezia, Denies coffee ground emesis, Denies dysphagia, Denies diarrhea, Denies nausea and Denies vomiting Denies urinary frequency, Denies dysuria, Denies urinary hesitancy and Denies urinary urgency Musc Denies arthralgias, Denies limited range of motion, Denies muscle cramps and Denies muscle weakness Skin/Breast Denies rash and Denies skin ulcer Neuro Denies Abnormal speech present, Denies confusion, Denies vertigo, Denies dizziness, Denies syncope, Denies headache(s), Denies memory loss and Denies seizure-like activity Psych Denies anxiety, Denies confusion, Denies depression, Denies memory loss, Denies panic attacks and Denies paranoia Endo Denies excessive sweating, Denies fatigue, Denies flushing, Denies polydipsia and Denies polyuria Aller/Immun Denies wheezing Physical exam (Primary Care) Vital Signs: Last Vital Signs Pulse 84 01/17/24 10:52 BP 130/70 01/17/24 10:52 Pulse Ox 94 01/17/24 10:52 Oxygen Delivery Method Room Air 01/17/24 10:52 BMI result Body Mass Index 32.7 BMI Assessment/Plan discussion: High BMI High, discussed plan: lifestyle, weight reduction, dietary and physical activity Tobacco/Smoking Status: Tobacco use Status Tobacco use date assessed 01/17/24 01/17/24 10:54 Patient Tobacco Use Status Former Tobacco user 01/17/24 11:18 Tobacco use type Cigarette 01/17/24 11:18 e-Cigarette/Vaping Use Never Used 01/17/24 11:18 PHQ-9: PHQ-9 Score PHQ-9: Total score 0 01/17/24 11:15 Depression Screening Interpretation: Negative Thrive Assessment: Date of Thrive Assessment Date Thrive assessed 01/17/24 01/17/24 10:59 Currently or been in a relationship where the following occur: No concerns reported Const General: cooperative, comfortable, no acute distress, alert and awake; No confusion Orientation/consciousness: oriented to person, oriented to place, patient oriented x3 and No confusion HENMT Head: Yes normocephalic Ears: external ears normal and TM's normal bilaterally Face and sinus: No sinus tenderness Mouth: Normal oral and palatal mucosa present and tongue normal Teeth and gingiva: dentition normal and gingiva normal Throat: Yes posterior oropharynx normal, Yes tonsils normal and Yes uvula midline Eyes Conjunctivae: conjunctivae normal Sclerae: sclerae normal Pupils: Equal, round and reactive pupils present EOM: EOMs intact bilaterally Direct Ophthalmoscopy: No no photophobia Neck Neck: Yes no lymphadenopathy, No tender and Yes no JVD Thyroid: Thyroid normal Carotids: no bruits Chest Chest palpation & inspection: no tenderness Resp Effort & Inspection: normal respiratory effort, no audible wheezes, not labored and no stridor Auscultation: no crackles, no rales, no rhonchi and no wheezes Cardio Jugular venous distension: no JVD Rate: regular rate, not bradycardic and not tachycardic Rhythm: regular rhythm Bruits: no carotid bruits Peripheral pulses: Peripheral pulses 2+ throughout GI Inspection: Yes normal to inspection, No abdominal wall ecchymosis and No visible herniation Palpation (GI): Soft to palpation, nontender, no guarding, not rigid and No hepatosplenomegaly present Auscultation: normoactive bowel sounds General: Yes no CVA tenderness Back/Spine/Pelvis Back: no CVA tenderness and No back tenderness Cervical Spine: cervical ROM normal Thoracic/Lumbar Spine: thoracic and lumbar spine normal to inspection, straight leg raise negative bilaterally, No thoraco-lumbar ROM limited and No lumbar spinal tenderness Skin Lesions: no lesions Rashes: no rashes Wounds: no wounds Neuro General: oriented to person, oriented to place, patient oriented x3, CN's II-XI intact bilaterally and No confusion Cranial nerves: Yes Equal, round and reactive pupils present and Yes Normal accommodation reflex present Cognition (Neuro): normal cognition Speech: No Abnormal speech present Gait exam (Neuro): Normal gait present Motor exam (neuro): 5/5 motor strength present throughout Extrem Right upper extremity: full ROM; no cyanosis Left upper extremity: full ROM; no cyanosis Right lower extremity: no edema Left lower extremity: no edema Psych Appearance: grossly normal Mental Status: mental status grossly normal Affect: normal affect Attitude: cooperative Thought process: Normal thought process present Assessment and Plan Assessment & Plan (1) Annual physical exam: Code(s): Z00.00 - Encounter for general adult medical examination without abnormal findings (2) RLS (restless legs syndrome): Code(s): G25.81 - Restless legs syndrome Plan: Continues on 400 mg of gabapentin total daily dose which has been helpful in reducing her neuropathy and restless leg syndrome symptoms. (3) HLD (hyperlipidemia): Code(s): E78.5 - Hyperlipidemia, unspecified Qualifiers: Hyperlipidemia type: mixed hyperlipidemia Qualified Code(s): E78.2 - Mixed hyperlipidemia Plan: Patient's most recent lipid panel showing borderline high total cholesterol. Patient continues on Zetia as she has not been able to tolerate statin. She will continue on lifestyle modifications to reduce her cholesterol. Goal total cholesterol to be below 200. (4) Hypothyroid: Code(s): E03.9 - Hypothyroidism, unspecified Qualifiers: Hypothyroidism type: unspecified Qualified Code(s): E03.9 - Hypothyroidism, unspecified Plan: Patient's most recent TSH has been stable. She continues on levothyroxine 75 mcg. Weight has been stable. Will continue to follow TSH to assure normal. (5) Obese: Code(s): E66.9 - Obesity, unspecified Qualifiers: Body mass index: BMI 32.0-32.9 Obesity classification: adult class 1 (BMI 30 - 34.9) Obesity type: due to excess calories Serious obesity comorbidity presence: without serious comorbidity Qualified Code(s): E66.09 - Other obesity due to excess calories; Z68.32 - Body mass index [BMI] 32.0-32.9, adult Plan: Patient does understand her BMI is over 30 , she has been going to the gym several times a week and has been changing her diet though has not lost any weight. She is interested in starting a GLP 1 to help her lose weight. Will start Wegovy 0.25 weekly and up titrate Will follow-up with patient in 6 weeks to evaluate for benefit Orders: Orders TSH reflex Free T4 Today E03.9 - Hypothyroidism, unspecified Vitamin D 25-OH Total Today E55.9 - Vitamin D deficiency, unspecified Lipid Panel Today E78.2 - Mixed hyperlipidemia Comprehensive [place]. Panel Fast Today E78.2 - Mixed hyperlipidemia Complete Blood Count no Diff Today E78.2 - Mixed hyperlipidemia Medications: New semaglutide (weight loss) (Wegovy) administer weeks 1 through 4 of therapy 0.25 mg (0.5 mL) subcut QWEEK 2 mL 0RF 4 weeks E66.09 - Other obesity due to excess calories, E78.2 - Mixed hyperlipidemia, Z68.32 - Body mass index [BMI] 32.0-32.9, adult Refilled cholecalciferol (vitamin D3) (Vitamin D3) 50 mcg PO DAILY 90 caps 2RF 90 days E78.2 - Mixed hyperlipidemia Patient Instructions: Goal: LDL to remain below 130, total cholesterol to be below 200 Barriers: Adherence to physical activity and healthy eating habits Coding Level of Care Code Est Pt Prev Care 40-64y(16783) Diagnoses Annual physical exam Z00.00 RLS (restless legs syndrome) G25.81 Mixed hyperlipidemia E78.2 Hyperlipidemia type: mixed hyperlipidemia Hypothyroidism, unspecified type E03.9 Hypothyroidism type: unspecified Class 1 obesity due to excess calories without serious comorbidity with body mass index (BMI) of 32.0 to 32.9 in adult E66.09; Z68.32 Body mass index: BMI 32.0-32.9 Obesity classification: adult class 1 (BMI 30 - 34.9) Obesity type: due to excess calories Serious obesity comorbidity presence: without serious comorbidity Additional Codes JOHNATHAN-7 Assessment Billing - JOHNATHAN-7 Assessment Tool: JOHNATHAN-7 Assessment [id number] ([id number])
[2024-01-17 10:52] VITALS: BP 130/70; PULSE 84; O2SAT 94; BMI 32.7
== END 2024-01-17 11:33 | disposition home or self-care (01) ==
PROVIDERS: PCP Physician Assistant; Visit Provider Physician Assistant
DX: Z00.00 Encounter for general adult medical examination without abnormal findings (principal); G25.81 Restless legs syndrome; E78.2 Mixed hyperlipidemia; E03.9 Hypothyroidism, unspecified; E66.09 Other obesity due to excess calories; Z68.32 Body mass index [BMI] 32.0-32.9, adult
CPT/HCPCS: 99396

== ENCOUNTER 2024-03-04 06:06 | Outpatient (REF) | payer OTHER, SELFPAY ==
[2024-03-04 07:38] LABS: Hematocrit 42.8 % (37.0-47.0); Hemoglobin 13.7 g/dl (12.0-16.0); Mean Corpuscular Hemoglobin 28.1 pg (27.0-33.0); Mean Corpuscular Volume 87.9 fL (80.0-98.0); Mean Platelet Volume 9.5 fL (9.4-12.3); Platelet Count 236 X10*3/uL (160-400); Red Blood Count 4.87 X10*6/uL (4.20-5.50); Red Cell Distribution Width 12.8 % (11.0-16.0); White Blood Count 7.3 X10*3/uL (4.8-10.8)
[2024-03-04 08:24] LABS: Alanine Aminotransferase 14 U/L (0-31); Albumin Level 4.1 g/dL (3.5-5.0); Alkaline Phosphatase 79 U/L (39-117); Anion Gap 14 (12-20); Aspartate Amino Transferase 22 U/L (5-31); Bilirubin Total 0.5 mg/dL (0.0-1.0); Blood Urea Nitrogen 11 mg/dL (9-16); Calcium 9.6 mg/dL (8.4-10.2); Carbon Dioxide 27 mmol/L (22-29); Chloride 105 mmol/L (96-108); Cholesterol 207 mg/dL (<200); Estimated Glomerular Filt Rate > 60; Glucose Fasting 90 mg/dL (60-99); HDL Cholesterol 50 mg/dL (>40); LDL Cholesterol Calculated 133 mg/dL (<100); Potassium 3.8 mmol/L (3.3-5.1); Sodium 142 mmol/L (135-145); Total Protein 6.9 g/dL (6.5-8.0); Triglycerides 122 mg/dL (<150)
[2024-03-04 08:39] LABS: TSH reflex Free T4 0.68 uIU/mL (0.32-4.0); Vitamin D 25-OH Total 64.4 ng/mL (>30)
== END 2024-03-04 06:07 | disposition home or self-care (01) ==
LOC: HO.LAB 06:06
PROVIDERS: PCP Physician Assistant; Visit Provider Physician Assistant
DX: E78.2 Mixed hyperlipidemia (principal); E55.9 Vitamin D deficiency, unspecified; E03.9 Hypothyroidism, unspecified
CPT/HCPCS: 36415; 80053; 80061; 82306; 84443; 85027

== ENCOUNTER 2024-03-06 09:31 | Outpatient (AMB) | payer OTHER, SELFPAY ==
[2024-03-06 09:33] VITALS: BP 130/70; PULSE 68; O2SAT 98; BMI 31.1
--- NOTE | 2024-03-06 09:33 | MHC.PC.OV ---
Vital Signs 03/06/24 09:33 Height 5 ft 2 in Weight 170 lb BMI 31.1 BP 130/70 Blood Pressure Location Lt brachial Position Sitting Pulse 68 Pulse Source Pulse Oximeter Pulse Oximetry (%) 98 Oxygen Delivery Method Room Air Intake Visit Reasons: f/u weight check / labs Homemaking Rehabilitation Consultant Required: No Accompanied by: Self / Same As Patient Allergies No Known Allergies Allergy (Verified 03/06/24 09:49) Medication List - Last Reconciled 03/06/24 by Usman Segundo PA-C cholecalciferol (vitamin D3) (Vitamin D3) 50 mcg PO DAILY 90 days cyclobenzaprine 10 mg PO BEDTIME 15 days ezetimibe 10 mg PO DAILY 90 days fluoxetine 40 mg (2 x 20 mg) PO DAILY 90 days gabapentin 300 mg PO BEDTIME 30 days gabapentin 100 mg PO DAILY 30 days levothyroxine 75 mcg PO DAILY 90 days psyllium husk (Metamucil) 0.4 grams PO DAILY ropinirole 0.25 mg PO BEDTIME 90 days triamcinolone acetonide 0.5% 1 appl topical BID 7 days Tobacco use date assessed: 01/17/24 Dental Screening Dental Screen Date: 01/17/24 HPI f/u weight check / labs HPI Details Patient is a 64 -year-old female here today for follow-up visit Patient has a past medical history significant for depression, hypothyroidism, hyperlipidemia, obesity, inflammatory bowel disease.. At last visit we discussed patient's inability to lose weight and she was willing to start Wegovy. She has started GLP 1 through a online clinic . She has lost 10 lb since last office visit. Also her cholesterol has improved significantly ? Hypothyroid Tsh normal, has been chemically and? clinically euthyroid. .. Obesity: Today's BMI at 31. Currently on a GLP 1 weekly CHRONIC MEDICAL CONDITIONS--> .. Restless leg syndrome: Continues with gabapentin 400 mg daily with good effect. .. Elevated liver enzymes: Was due to taking Tylenol daily for her knee pain thus has reduced her Tylenol. Liver enzymes have normalized .. . Hyperlipidemia:? Lipid panel has improved ..? LDL acceptable.? Will continue her on Zetia 10 mg daily. She has discontinue statin therapy due to thoughts of causing neuropathy in her lower extremities. Continue to hold statin for now, we hope with weight loss her cholesterol will even improved PFSH Medical History (Updated 03/06/24 @ 09:58 by Usman Segundo PA-C) Vitamin D deficiency Terminal ileitis Restless leg syndrome Hypothyroidism Anxiety and depression Colon cancer screening Surgical History History of colonoscopy History of tubal ligation Family History Father Prostate cancer Mother Celiac disease Breast cancer Brother In good health Daughter In good health Social History Housing: Condominium Alcohol intake: current Alcohol intake frequency: a few times a month Patient Tobacco Use Status: Former Tobacco user Tobacco use type: Cigarette e-Cigarette/Vaping Use: Never Used Second Hand Smoke Exposure: No service: No Current occupational status: employed 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 Alan Austin, Matilda Wise, Adonis Olvera and colleagues, with an educational lev from [employer]. Review of Systems Const Denies headache(s) Eyes Denies loss of vision ENT Denies vertigo, Denies dizziness, Denies headache(s) and Denies sore throat Card Denies chest pain, Denies leg edema and Denies lightheadedness Resp Denies cough, Denies hemoptysis and Denies wheezing GI Denies abdominal pain, Denies melena, Denies constipation, Denies diarrhea and Denies vomiting Denies urinary frequency, Denies dysuria and Denies urinary urgency Musc Denies arthralgias, Denies joint swelling, Denies numbness and Denies tingling Neuro Denies Abnormal speech present, Denies behavioral changes, Denies vertigo, Denies dizziness, Denies headache(s), Denies loss of vision, Denies memory loss, Denies numbness and Denies tingling Psych Denies anxiety, Denies behavioral changes, Denies depression, Denies memory loss and Denies panic attacks Mark/Lymph Denies easy bleeding and Denies easy bruising Aller/Immun Denies wheezing Physical exam (Primary Care) Vital Signs: Last Vital Signs Pulse 68 03/06/24 09:33 BP 130/70 03/06/24 09:33 Pulse Ox 98 03/06/24 09:33 Oxygen Delivery Method Room Air 03/06/24 09:33 BMI result Body Mass Index 31.1 Tobacco/Smoking Status: Tobacco use Status Tobacco use date assessed 01/17/24 03/06/24 09:33 Patient Tobacco Use Status Former Tobacco user 03/06/24 09:33 Tobacco use type Cigarette 03/06/24 09:33 e-Cigarette/Vaping Use Never Used 03/06/24 09:33 Thrive Assessment: Date of Thrive Assessment Date Thrive assessed 01/17/24 03/06/24 09:33 Const General: healthy appearing, no acute distress, alert and awake Nutritional Appearance: well nourished Orientation/consciousness: oriented to person, oriented to place and oriented to time HENMT Ears: TM's normal bilaterally General nose exam: Normal nasal mucous membranes and turbinates present Eyes Conjunctivae: conjunctivae normal Sclerae: sclerae normal Pupils: Equal, round and reactive pupils present Neck Neck: Yes no lymphadenopathy and Yes no JVD Thyroid: Thyroid normal Carotids: no bruits Resp Effort & Inspection: normal respiratory effort and not tachypneic Auscultation: no crackles, no rales, no rhonchi and no wheezes Cardio Rate: regular rate Rhythm: regular rhythm Heart sounds: no murmurs and normal S1 and S2 GI Palpation (GI): Soft to palpation, nontender, no hepatomegaly and no splenomegaly Auscultation: normal bowel sounds Skin General skin exam: no rashes or lesions noted and dry skin Neuro General: oriented to person, oriented to place and oriented to time Cranial nerves: Yes Equal, round and reactive pupils present Speech: No Abnormal speech present Gait exam (Neuro): Normal gait present Motor exam (neuro): no tremor noted Extrem Right upper extremity: full ROM Left upper extremity: full ROM Right lower extremity: full ROM; no edema Left lower extremity: full ROM; no edema Psych Mental Status: mental status grossly normal Speech and movement: Normal speech and movement present Affect: normal affect Attitude: cooperative Thought process: Normal thought process present Coding Level of Care Code Est Pt Level 4 (52053) Diagnoses Mixed hyperlipidemia E78.2 Hyperlipidemia type: mixed hyperlipidemia Hypothyroidism, unspecified type E03.9 Hypothyroidism type: unspecified Class 1 obesity E66.811 Assessment & Plan Assessment & Plan (1) HLD (hyperlipidemia): Code(s): E78.5 - Hyperlipidemia, unspecified Category: Medical Qualifiers: Hyperlipidemia type: mixed hyperlipidemia Qualified Code(s): E78.2 - Mixed hyperlipidemia Plan: Patient's most recent lipid panel showing improved total cholesterol. She does understand her total cholesterol still slightly borderline high and will continue working on lifestyle and dietary modifications. Goal total cholesterol to be below 200 (2) Hypothyroid: Code(s): E03.9 - Hypothyroidism, unspecified Category: Medical Qualifiers: Hypothyroidism type: unspecified Qualified Code(s): E03.9 - Hypothyroidism, unspecified Plan: Patient's most recent TSH stable though has made significant decreased. Will recheck TSH in 6 weeks to ensure she is not hyperactive. Will consider making adjustments on levothyroxine at that point. (3) Class 1 obesity: Code(s): E66.811 - Obesity, class 1 Category: Medical Plan: Patient does understand her BMI remains above 30. She will continue doing a GLP 1 once weekly injection through a clinic. Has lost 10 lb since starting these injections. She feels great in his happy with the results thus far. Her goal weight is to be around 150 lb Orders: Orders TSH reflex Free T4 6 Weeks E03.9 - Hypothyroidism, unspecified Lipid Panel 6 Months E78.2 - Mixed hyperlipidemia TSH reflex Free T4 6 Months E03.9 - Hypothyroidism, unspecified Hemoglobin A1c 6 Months R73.02 - Impaired glucose tolerance (oral) Comprehensive [place]. Panel Fast 6 Months R73.02 - Impaired glucose tolerance (oral)
== END 2024-03-06 09:58 | disposition home or self-care (01) ==
LOC: HO.HMCH 09:31
PROVIDERS: PCP Physician Assistant; Visit Provider Physician Assistant
DX: E78.2 Mixed hyperlipidemia (principal); E03.9 Hypothyroidism, unspecified; E66.811 Obesity, class 1; Z68.30 Body mass index [BMI] 30.0-30.9, adult

== ENCOUNTER → 2024-03-06 09:31 | Outpatient (BNVA) | payer OTHER, SELFPAY | PROVIDERS: PCP Physician Assistant; Visit Provider Physician Assistant ==

== ENCOUNTER 2024-05-15 06:17 | Outpatient (REF) | payer OTHER, SELFPAY ==
[2024-05-15 07:27] LABS: TSH reflex Free T4 0.74 uIU/mL (0.32-4.0)
== END 2024-05-15 06:18 | disposition home or self-care (01) ==
LOC: HO.LAB 06:17
PROVIDERS: PCP Physician Assistant; Visit Provider Physician Assistant
DX: E66.811 Obesity, class 1 (principal); Z68.29 Body mass index [BMI] 29.0-29.9, adult; E78.2 Mixed hyperlipidemia; E03.9 Hypothyroidism, unspecified; R73.02 Impaired glucose tolerance (oral); Z79.899 Other long term (current) drug therapy
CPT/HCPCS: 36415; 84443; 96127

== ENCOUNTER 2024-05-15 15:49 | Outpatient (AMB) | payer OTHER, SELFPAY ==
--- NOTE | 2024-05-15 15:56 | MHC.PC.OV ---
Vital Signs 05/15/24 15:58 Height 5 ft 2 in Weight 160 lb 6 oz BMI 29.3 BP 114/82 Blood Pressure Location Lt brachial Position Sitting Pulse 72 Pulse Source Pulse Oximeter Pulse Oximetry (%) 99 Oxygen Delivery Method Room Air Intake Visit Reasons: annual pe Intake Note: Pt is here for weight check. Utilization Review Nurse Required: No Accompanied by: Self / Same As Patient Allergies No Known Allergies Allergy (Verified 05/15/24 16:13) Medication List - Last Reconciled 05/15/24 by Usman Segundo PA-C cholecalciferol (vitamin D3) (Vitamin D3) 50 mcg PO DAILY 90 days cyclobenzaprine 10 mg PO BEDTIME 15 days ezetimibe 10 mg PO DAILY 90 days fluoxetine 40 mg (2 x 20 mg) PO DAILY 90 days gabapentin 100 mg PO DAILY 30 days gabapentin 300 mg PO BEDTIME 30 days levothyroxine 75 mcg PO DAILY 90 days psyllium husk (Metamucil) 0.4 grams PO DAILY ropinirole 0.25 mg PO BEDTIME 90 days triamcinolone acetonide 0.5% 1 appl topical BID 7 days Tobacco use date assessed: 05/15/24 Dental Screening Dental Screen Date: 05/15/24 Did you have a dental visit in the last 12 months?: Yes Did you have a dental problem in the last 6 months where you did not have access to dental care?: No Was dental information given to patient?: Patient has dentist HPI annual pe HPI Details Patient is a 64 -year-old female here today for a weight check/follow-up visits. Patient has a past medical history significant for depression, hypothyroidism, hyperlipidemia, obesity, inflammatory bowel disease.. ? Hypothyroid Tsh normal, has been chemically and? clinically euthyroid. .. Obesity: Patient has been going to a weight loss clinic in on a low-dose GLP 1 she has been handling well. She denies any significant side effects. She has lost significant weight and now down to 160 lb. BMI now at 29.3. She has implemented a workup routine and has been following a low calorie intake diet. She reports she feels great in his happy with the results. She eventually would like to get GLP 1 covered through insurance come spring. CHRONIC MEDICAL CONDITIONS--> .. Restless leg syndrome: Continues with gabapentin 400 mg daily with good effect. .. . Hyperlipidemia:? Lipid panel has improved ..? LDL acceptable.? Will continue her on Zetia 10 mg daily. She has discontinue statin therapy due to thoughts of causing neuropathy in her lower extremities. Continue to hold statin for now, we hope with weight loss her cholesterol will even improved. Laboratory Tests 07/12/23 08/02/23 09/13/23 08:21 09:20 09:30 RBC Hgb Creatinine AST 45 H 24 ALT 53 H 26 Cholesterol 218 H LDL Cholesterol, C alc 128 H TSH 03/04/24 03/04/24 05/15/24 06:11 Unknown 06:24 RBC 4.87 Hgb 13.7 Creatinine 0.77 AST ALT Cholesterol 207 H LDL Cholesterol, C alc 133 H TSH 0.68 0.74 [facility] Medical History (Updated 03/06/24 @ 09:58 by Usman Segundo PA-C) Vitamin D deficiency Terminal ileitis Restless leg syndrome Hypothyroidism Anxiety and depression Colon cancer screening Surgical History History of colonoscopy History of tubal ligation Family History Father Prostate cancer Mother Celiac disease Breast cancer Brother In good health Daughter In good health Social History Housing: Condominium Alcohol intake: current Alcohol intake frequency: a few times a month Patient Tobacco Use Status: Former Tobacco user Tobacco use type: Cigarette e-Cigarette/Vaping Use: Never Used Second Hand Smoke Exposure: No service: No Current occupational status: employed 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 1. Little interest or pleasure in doing things: not at all 2. Feeling down, depressed, or hopeless: not at all 3. Trouble falling or staying asleep, or sleeping too much: not at all 4. Feeling tired or having little energy: not at all 5. Poor appetite or overeating: not at all 6. Feeling bad about yourself - or that you are a failure or have let yourself or your family down: not at all 7. Trouble concentrating on things, such as reading the newspaper or watching television: not at all 8. Moving or speaking so slowly that other people could have noticed. Or the opposite - being so fidgety or restless that you have been moving around a lot more than usual: not at all 9. Thoughts that you would be better off or of hurting yourself in some way: not at all Total score: 0 Depression Screening Interpretation: Negative Depression Screening Done: Yes 41788 - PHQ-9 Billing: Yes Source: Developed by Drs. Alan Austin, Matilda Wise, Adonis Olvera and colleagues, with an educational lev from [employer]. Thrive Questionnaire Date Thrive assessed: 05/15/24 I am a: Patient What is your living situation today?: I have a steady place to live Within the past 12 months, did the food you bought not last and you didn't have the money to get more?: Never true Within the past 12 months, did you worry whether your food would run out before you got money to buy more?: Never true Do you have trouble paying for medicines?: No Do you have trouble getting transportation to medical appointments?: No Do you have trouble paying your heating and electricity bill?: No Do you have trouble taking care of your child, family member or friend?: No Do you have trouble with day-to-day activities such as bathing, preparing meals, shopping, managing finances, etc.?: No Are you currently unemployed and looking for a job?: No Are you interested in more education?: No Currently or been in a relationship where the following occur: No concerns reported THRIVE Score: 0 AUDIT C Alcohol Use Questionnaire (AUDIT-C) 1. How often do you have a drink containing alcohol?: Monthly or less 2. How many drinks containing alcohol do you have on a typical day when you are drinking?: 1 or 2 3. How often do you have six or more drinks on one occasion?: Never Total Score: 1 JOHNATHAN-7 AMB Questionnaire JOHNATHAN-7 Date JOHNATHAN - 7 assessed: 05/15/24 Feeling nervous, anxious, or on edge: 0 = Not at all Not being able to stop or control worryin = Not at all Worrying too much about different things: 0 = Not at all Trouble relaxin = Not at all Being so restless that it is hard to sit still: 0 = Not at all Becoming easily annoyed or irritable: 0 = Not at all Feeling afraid as if something awful might happen: 0 = Not at all Total JOHNATHAN-7 score (0-4 normal; 5-9 mild; 10-14 moderate; 15-21 severe): 0 Source: Developed by Drs. Alan Austin, Matilda Wise, Adonis Olvera and colleagues, with an educational lev from [employer]. JOHNATHAN-7 Assessment Billing JOHNATHAN-7 Assessment Tool: JOHNATHAN-7 Assessment 25417 Review of Systems Const Denies body aches, Denies chills, Denies excessive sweating, Denies fatigue, Denies fever(s) and Denies headache(s) Eyes Denies blurry vision ENT Denies dysphagia, Denies vertigo, Denies dizziness, Denies headache(s), Denies hearing loss and Denies tinnitus Card Denies chest pain, Denies chest pain with activity, Denies syncope, Denies irregular heart rhythm and Denies dyspnea Resp Denies chest congestion, Denies cough, Denies hemoptysis, Denies dyspnea and Denies wheezing GI Denies abdominal pain, Denies melena, Denies hematochezia, Denies coffee ground emesis, Denies dysphagia, Denies diarrhea, Denies nausea and Denies vomiting Denies urinary frequency, Denies dysuria, Denies urinary hesitancy and Denies urinary urgency Musc Denies arthralgias, Denies limited range of motion, Denies muscle cramps and Denies muscle weakness Skin/Breast Denies rash and Denies skin ulcer Neuro Denies Abnormal speech present, Denies confusion, Denies vertigo, Denies dizziness, Denies syncope, Denies headache(s), Denies memory loss and Denies seizure-like activity Psych Denies anxiety, Denies confusion, Denies depression, Denies memory loss, Denies panic attacks and Denies paranoia Endo Denies excessive sweating, Denies fatigue, Denies flushing, Denies polydipsia and Denies polyuria Mark/Lymph Denies easy bleeding and Denies easy bruising Aller/Immun Denies wheezing Physical exam (Primary Care) Vital Signs: Last Vital Signs Pulse 72 05/15/24 15:58 BP 114/82 01/09/25 15:58 Pulse Ox 99 05/15/24 15:58 Oxygen Delivery Method Room Air 05/15/24 15:58 BMI result Body Mass Index 29.3 Tobacco/Smoking Status: Tobacco use Status Tobacco use date assessed 05/15/24 05/15/24 16:06 Patient Tobacco Use Status Former Tobacco user 05/15/24 15:59 Tobacco use type Cigarette 05/15/24 15:59 e-Cigarette/Vaping Use Never Used 05/15/24 15:59 PHQ-9: PHQ-9 Score PHQ-9: Total score 0 05/15/24 16:14 Depression Screening Interpretation: Negative Thrive Assessment: Date of Thrive Assessment Date Thrive assessed 05/15/24 05/15/24 15:59 Currently or been in a relationship where the following occur: No concerns reported Const General: cooperative, comfortable, no acute distress, alert and awake; No confusion Nutritional Appearance: well nourished Orientation/consciousness: oriented to person, oriented to place, patient oriented x3 and No confusion HENMT Head: Yes normocephalic Ears: external ears normal and TM's normal bilaterally General nose exam: Normal nasal mucous membranes and turbinates present Face and sinus: No sinus tenderness Mouth: Normal oral and palatal mucosa present and tongue normal Teeth and gingiva: dentition normal and gingiva normal Throat: Yes posterior oropharynx normal, Yes tonsils normal and Yes uvula midline Eyes Conjunctivae: conjunctivae normal Sclerae: sclerae normal Pupils: Equal, round and reactive pupils present EOM: EOMs intact bilaterally Direct Ophthalmoscopy: No no photophobia Neck Neck: Yes no lymphadenopathy, No tender and Yes no JVD Thyroid: Thyroid normal Carotids: no bruits Chest Chest palpation & inspection: no tenderness Resp Effort & Inspection: normal respiratory effort, no audible wheezes, not labored and no stridor Auscultation: no crackles, no rales, no rhonchi and no wheezes Cardio Jugular venous distension: no JVD Rate: regular rate, not bradycardic and not tachycardic Rhythm: regular rhythm Heart sounds: no murmurs and normal S1 and S2 Bruits: no carotid bruits Peripheral pulses: Peripheral pulses 2+ throughout GI Inspection: Yes normal to inspection, No abdominal wall ecchymosis and No visible herniation Palpation (GI): Soft to palpation, nontender, no guarding, not rigid and No hepatosplenomegaly present Auscultation: normoactive bowel sounds General: Yes no CVA tenderness Back/Spine/Pelvis Back: no CVA tenderness and No back tenderness Cervical Spine: cervical ROM normal Thoracic/Lumbar Spine: thoracic and lumbar spine normal to inspection, straight leg raise negative bilaterally, No thoraco-lumbar ROM limited and No lumbar spinal tenderness Skin General skin exam: no rashes or lesions noted and dry skin Lesions: no lesions Rashes: no rashes Wounds: no wounds Neuro General: oriented to person, oriented to place, patient oriented x3, CN's II-XI intact bilaterally and No confusion Cranial nerves: Yes Equal, round and reactive pupils present and Yes Normal accommodation reflex present Cognition (Neuro): normal cognition Speech: No Abnormal speech present Gait exam (Neuro): Normal gait present Motor exam (neuro): 5/5 motor strength present throughout Extrem Right upper extremity: full ROM; no cyanosis Left upper extremity: full ROM; no cyanosis Right lower extremity: no edema Left lower extremity: no edema Psych Appearance: grossly normal Mental Status: mental status grossly normal Speech and movement: Normal speech and movement present Affect: normal affect Attitude: cooperative Thought process: Normal thought process present Coding Level of Care Code Est Pt Level 4 (60013) Diagnoses Class 1 obesity E66.811 Mixed hyperlipidemia E78.2 Hyperlipidemia type: mixed hyperlipidemia Hypothyroidism, unspecified type E03.9 Hypothyroidism type: unspecified Impaired glucose tolerance R73.02 Additional Codes JOHNATHAN-7 Assessment Billing - JOHNATHAN-7 Assessment Tool: JOHNATHAN-7 Assessment 92541 ([id number]) PHQ-9 - 45326 - PHQ-9 Billing: Yes ([id number]) Assessment & Plan Assessment & Plan (1) Class 1 obesity: Code(s): E66.811 - Obesity, class 1 Category: Medical Plan: Patient's BMI now much improved. She has been going to a weight loss clinic in doing a GLP 1 can paying [id number]. She reports she feels much better and has lost more than 5% of her total body weight. She will try to get insurance to cover GLP 1 through PCP office in spring. (2) HLD (hyperlipidemia): Code(s): E78.5 - Hyperlipidemia, unspecified Category: Medical Qualifiers: Hyperlipidemia type: mixed hyperlipidemia Qualified Code(s): E78.2 - Mixed hyperlipidemia Plan: Most recent lipid panel showing good control over total cholesterol and LDL. Will recheck fasting lipid panel to ensure stable total cholesterol and LDL. She has lost weight being on a GLP 1 recently (3) Hypothyroid: Code(s): E03.9 - Hypothyroidism, unspecified Category: Medical Qualifiers: Hypothyroidism type: unspecified Qualified Code(s): E03.9 - Hypothyroidism, unspecified Plan: Patient's most recent TSH stable. Will continue her current dose of levothyroxine 75 mcg. (4) Impaired glucose tolerance: Code(s): R73.02 - Impaired glucose tolerance (oral) Category: Medical Plan: Most recent fasting blood sugar stable. Again has lost weight since starting Chong P1. Orders: Orders Comprehensive [place]. Panel Fast 05/15/24 E78.2 - Mixed hyperlipidemia Complete Blood Count no Diff 05/15/24 E78.2 - Mixed hyperlipidemia Lipid Panel 05/15/24 E78.2 - Mixed hyperlipidemia TSH reflex Free T4 05/15/24 E03.9 - Hypothyroidism, unspecified Hemoglobin A1c 05/15/24 R73.02 - Impaired glucose tolerance (oral) Patient Instructions: Goal: Maintain weight loss, LDL to remain below 160 Barriers: Adherence to physical activity and healthy eating habits
[2024-05-15 15:58] VITALS: BP 114/82; PULSE 72; O2SAT 99; BMI 29.3
== END 2024-05-15 16:30 | disposition home or self-care (01) ==
PROVIDERS: PCP Physician Assistant; Visit Provider Physician Assistant
DX: E78.2 Mixed hyperlipidemia (principal); E03.9 Hypothyroidism, unspecified; E66.811 Obesity, class 1; Z68.29 Body mass index [BMI] 29.0-29.9, adult; R73.02 Impaired glucose tolerance (oral)

== ENCOUNTER 2024-09-02 06:11 | Outpatient (REF) | payer OTHER, SELFPAY ==
--- OUTSIDE RECORDS SUMMARY | 2024-09-02 06:14 | XMS_ITS | Patient Health Record ---
Author Organization [facility] Address [address] [place] [address] Care Team Providers Care Assembler Equipment Name Role Phone NATALIO GARCIA Primary Care Provider Brionna Pierce Unavailable [phone] Allergies No Known Allergies Results Component Value Reference Range Notes Urinalysis Reviewed date:01/24/2024 10:51:51 AM Interpretation: Performing Lab: Notes/Report: PH 5.0 PROTEIN TR GLUCOSE NEG BLOOD TR [id number] IGP No Culture 30 Plus Reviewed date:01/29/2024 08:45:30 PM Interpretation: Performing Lab:[facility], [address], [address], [place], Phone - [phone], Director - [facility] Notes/Report: Clinical Information:[id number] Dates / Results....09/09/20 NIL No. of containers..01 ThinPrep Vial DIAGNOSIS: NEGATIVE FOR IN TRAEPITHELIAL LESION OR MALIGNANCY. Specimen adequacy: Satisfactory for evaluation. Endocervical and/or squamous metaplastic cells (endocervical component) are present. Clinician provided ICD10: Z0 1.419 Performed by: Trevon Castellanos , Electronic Gluing Machine Operator (ASCP) . . Note: The Pap smear is a screening test designed to aid in the detection of premalignant and malignant conditions of the uterine cervix. It is not a diagnostic procedure and should not be used as the sole means of detecting cervical cancer. Both false-positive and false-negative reports do occur. . Test Methodology: This liquid based ThinPrep(R) pap test was screened with the use of an image guided system. HPV Aptima Negative Negative This nucleic acid amplification test detects fourteen high-risk HPV types (16,18,31,33,35,39,45,51,52,56,58 ,59,66,68) without differentiation. HPV Genotype Reflex Criteria not met, HPV Genotype not performed. PDF Report Reviewed date:01/29/2024 08:45:12 PM Interpretation: Performing Lab:[facility] [place], [address], [address], [place], Phone - [phone], Director - [facility] Notes/Report: Clinical Information:[id number] Dates / Results....09/09/20 NIL No. of containers..01 ThinPrep Vial Reason For Referral No Information Medications Medication SIG (Take, Route, Frequency, Duration) Notes Start Date End Date Status Probiotic Active Zetia 10 MG 1 tablet Orally Once a day for 30 day(s) 10/20/2021 Active Vitamin D3 25 MCG (1000 UT) 1 capsule Orally Once a day for 30 day(s) Active Gabapentin 400 MG 1 capsule Orally Onc e a day Active Levoxyl 75 MCG 1 tablet in the morn ing on an empty stomach Orally Once a day [facility] 12/15/2013 Active FLUoxetine HCl 40MG 1 ORAL twice daily for -3 [facility] 10/2011 Active Social History Tobacco Use: Social History Observation Description Date Details (start date - stop date) Never Smoker NA - NA Tobacco Use/Smoking Question Answer Notes Are you a nonsmoker Alcohol Screen (Audit-C) Question Answer Notes Did you have a drink contain ing alcohol in the past year? Yes How often did you have a dri nk containing alcohol in the past year? Monthly or less (1 point) How many drinks did you have on a typical day when you were drinking in the past year? 1 or 2 drinks (0 point) Points 1 Interpretation Negative Sexual History Question Answer Notes Had sex in the past 12 months (vaginal, oral, or anal)? Yes Problems Problem Type SNOMED Code ICD Code Onset Dates Problem Status W/U Status Risk Notes Problem Family history of malignant neoplasm of breast (158719062) Family history of malignant neoplasm of breast (Z80.3) Active confirmed Problem Hypothyroidism (35675115) Unspecified hypothyroidism (244.9) Active confirmed Major Problem Hyperlipidemia (32523712) Other and unspecified hyperlipidemia (272.4) Active confirmed Major Problem Depressive disorder (31707055) Depressive disorder, not elsewhere classified (311) Active confirmed Major Problem Mild dysplasia of cervix (028570212) Mild dysplasia of cervix (622.11) Active confirmed Diag Problem Mucous polyp of cervix (60342871) Mucous polyp of cervix (622.7) Active confirmed Diag Problem Postcoital bleeding (80494261) Postcoital bleeding (626.7) Active confirmed Diag Problem Menopausal symptom (12276577) Symptomatic menopausal or female climacteric states (627.2) Active confirmed Diag Problem Urinary incontinence (865932954) Unspecified urinary incontinence (788.30) Active confirmed Diag Problem Cervicovaginal cytology: Low grade squamous intraepithelial lesion (305166766) Papanicolaou smear of cervix with low grade squamous intraepithelial lesion (LGSIL) (795.03) Active confirmed Diag Problem Gynecological examination normal (513289216750085) Routine gynecological examination (V72.31) Active confirmed Diag Problem Dietary management surveillance (740751884) Dietary surveillance and counseling (V65.3) Active confirmed Diag Problem Exercises teaching, guidance, and counseling (119641768) Exercise counseling (V65.41) Active confirmed Diag Vital Signs Temperature 98.2 degrees Fahrenheit 01/24/2024 Blood pressure diastolic 84 mm Hg 01/24/2024 Height 63.0 in 01/24/2024 Blood pressure systolic 124 mm Hg 01/24/2024 Weight 179 lbs 01/24/2024 BMI 31.7 kg/m2 01/24/2024 Encounters Encounter Location Date Provider Diagnosis [address] [place] [address] 01/24/2024 Brionna Olson Encounter for gynecological examination (general) (routine) without abnormal findings Z01.419 ; Encounter for screening mammogram for malignant neoplasm of breast Z12.31 and Encounter for screening for osteoporosis Z13.820 Assessments Encounter Date Diagnosis (ICD Code) Assessment Notes Treatment Notes Treatment Clinical Notes Section Notes 01/24/2024 Encounter for gynecological examination (general) (routine) without abnormal findings (ICD-10 - Z01.419) PAP TEST WITH HPV TYPING WAS OBTAINED. 01/24/2024 Encounter for screening mammogram for malignant neoplasm of breast (ICD-10 - Z12.31) REGULAR MAMMOGRAMS AND SBE'S WERE RECOMMENDED. 01/24/2024 Encounter for screening for osteoporosis (ICD-10 - Z13.820) BONE DENSITY WAS ORDERED. Plan Of Treatment Pending Test Test Name Order Date MAMMOGRAM, SCREENING 10/20/2021 MAMMOGRAM, SCREENING 01/11/2023 MAMMOGRAM, SCREENING 01/24/2024 Urinalysis 09/09/2020 BONE DENSITY 01/24/2024 MM Digital Mammo Screening 10/20/2021 MM Digital Mammo Screening 06/19/2017 MM Digital Mammo Screening 09/09/2020 MM Digital Mammo Screening 01/24/2024 MM Digital Mammo Screening 01/11/2023 Next Appt Details Provider Name:Brionna Guerrero paulino, 01/29/2025 10:00:00 AM, [address], [address], [place], [address], Insurance Providers Payer Name Payer Address Payer Phone Subscriber Number Group Number Insured Name Patient Relationship to Insured Coverage Start Date Coverage End Date [facility] [address] [place] [address] [phone] [id number] TERRY HOLT Self - patient is the insured 4 Medical (General) History Medical History History ICD Code Menopausal and female climacteric states N95.1 Mild cervical dysplasia N87.0 Low grade squamous intraepit helial lesion on cytologic smear of cervix (LGSIL) R87.612 Polyp of cervix uteri N84.1 Postcoital and contact bleeding N93.0 Unspecified urinary incontinence R32 Major depressive disorder, single episod e, unspecified F32.9 Other hyperlipidemia E78.4 Hypothyroidism, unspecified E03.9 Family history of malignant neoplasm of breast Z80.3 Surgical History Surgery Date(Month/Year) Bilateral Tubal Ligation 1996 Bladder Lift 2011 Colonoscopy 2012 Hospitalization History Reason Date(Month/Year) See Surgical Hx 2 Vaginal Deliveries
--- OUTSIDE RECORDS SUMMARY | 2024-09-02 06:15 | XMS_ITS ---
Author Organization [email or web address] [place] [facility] Address [address] [place] [address] Care Team Providers Care Newspaper Delivery Driver Name Role Phone NATALIO GARCIA Primary Care Provider Brionna Pierce Unavailable [phone] Allergies No Known Allergies Results Component Value Reference Range Notes Urinalysis Reviewed date:01/24/2024 10:51:51 AM Interpretation: Performing Lab: Notes/Report: PH 5.0 PROTEIN TR GLUCOSE NEG BLOOD TR [id number] IGP No Culture 30 Plus Reviewed date:01/29/2024 08:45:30 PM Interpretation: Performing Lab:[facility], [address], [address], [place], Phone - [phone], Director - [facility] Notes/Report: Clinical Information:[id number] Dates / Results....09/09/20 NIL No. of containers..01 ThinPrep Vial DIAGNOSIS: NEGATIVE FOR IN TRAEPITHELIAL LESION OR MALIGNANCY. Specimen adequacy: Satisfactory for evaluation. Endocervical and/or squamous metaplastic cells (endocervical component) are present. Clinician provided ICD10: Z0 1.419 Performed by: Trevon Castellanos , Rehab Tech (ASCP) . . Note: The Pap smear [...] Report Reviewed date:01/29/2024 08:45:12 PM Interpretation: Performing Lab:[facility], [address], [address], [place], Phone - [phone], Director - [facility] Notes/Report: Clinical Information:[id number] Dates / Results....09/09/20 NIL No. of containers..01 ThinPrep Vial REASON FOR VISIT Annual AIR ANALYST Physical, Annual AIR ANALYST Physical 60-85+ Medications Medication SIG (Take, Route, Frequency, Duration) Notes Start Date End Date Status Probiotic Active Zetia 10 MG 1 tablet Orally Once a day for 30 day(s) 10/20/2021 Active Levoxyl 75 MCG 1 tablet in the morn ing on an empty stomach Orally Once a day [facility] [place]- 12/15/2013 Active FLUoxetine HCl 40MG 1 ORAL twice daily for -3 [facility] [place]- 10/2011 Active Vitamin D3 25 MCG (1000 UT) 1 capsule Orally Once a day for 30 day(s) Active Gabapentin 400 MG 1 capsule Orally Onc e a day Active Social History Tobacco Use: Social History [...] 12 months (vaginal, oral, or anal)? Yes Vital Signs Temperature 98.2 degrees Fahrenheit 01/24/20 24 Blood pressure systolic 124 mm Hg 01/24/20 24 Blood pressure diastolic 84 mm Hg 024 Height 63.0 in 01/24/2024 Weight 179 lbs 01/24/2024 BMI 31.7 kg/m2 01/24/2024 Encounters Encounter Location Date Provider Diagnosis [address] [place] [address] 01/24/2024 Brionna Olson Encounter for gynecological examination [...] BONE DENSITY WAS ORDERED. Plan Of Treatment Treatment Notes Assessment Notes Encounter for gynecological examination (general) (routine) without abnormal findings PAP TEST WITH HPV TYPING WAS OBTAINED. Encounter for screening mamm ogram for malignant neoplasm of breast REGULAR MAMMOGRAMS AND SBE'S WERE RECOMMENDED. Encounter for screening for osteoporosis BONE DENSITY WAS ORDERED. Pending Test Test Name Order Date MAMMOGRAM, SCREENING 01/24/2024 BONE DENSITY 01/24/2024 MM Digital Mammo Screening 01/24/2024 Next Appt Details Follow Up: 1 Year, Reason: Provider Name:Brionna bob, 01/29/2025 10:00:00 AM, [address] [place] [address], [address], [place], [address], Progress Notes * TERRY HOLT MDOB: (63 yo F)Acc No.[id number]:01/24/2024 PROGRESS NOTES Patient:?TERRY HOLT Appointment Provider:?Brionna bob M.D. :1960???Age:63 Y???Sex:Female D ate:01/24/2024 Address:[address] [place], [place] [id number] Pcp:MARY OLIVIA Subjective: * Chief Complaints: * ???Annual AIR ANALYST PhysicalAnnual AIR ANALYST Physical 60-85+ * HPI: ???New/Follow-up Patient Consult:? PAT ENTERED MENOPAUSE AT AGE 49.? SHE GOT IN 2019 AND DENIES DYSPAREUNIA. HER MOTHER AND MATERNAL AUNT HAD BREAST CA.? PAT REFUSED GENETIC COUNSELLING OR TESTING. HER LAST MAMMOGRAM DONE IN OCT 2023 SHOWED BREASTS ARE NOT DENSE AND WAS NORMAL. HER LAST PAP TEST IN 2020 WAS NEGATIVE AND HPV NEGATIVE. SHE HAD A COLONOSCOPY DONE IN 2020. SHE FELL AND FRACTURED A TOE LAST YEAR.? WE WILL ORDER A BONE DENSITY THIS YEAR. PFIZER X 3. ???Annual:? Patient presents for annual exam, ages 60-85, postmenopausal. ?General Health Maintenance:?Current breast complaints:?no breast pain, mass, discharge, or skin changes ?Urinary problems:?patient reports no urinary health problems or bowel health problems ?Calcium intake:?takes adequate calcium via diet and supplementation ?Significant AIR ANALYST problems:?no significant nursery manager symptoms or problems * ROS:?general:?no?chest pain.?no?palpitations.?no?headache.?no?cough.?no?shortness of breath.?no?fever.?no?unexplained weight loss.?no?nausea/vomiting.?no?change in bowel movements.?no blood in stool.?no?genitourinary complaints.?no?skin complaints.? * Medical History:? * Multimedia Teacher History:?/ Para?2/2.?Sexual activity?sexually active.?Last Pap Smear:?09/09/20 NIL, NEG HPV, 05/30/2016 NIL, NEG HRHPV.?Mammogram:?10/25/23 [place], 10/19/22 [facility], 08/25/21 [place], 08/2020 [place], 03/13/19 < 50% density, 11/14/2016 , normal.?LMP and menses?[place].? Control:?bilateral tubal ligation.?Colonoscopy?01/14/21 q 10 years, 2010.?AIR ANALYST HISTORY MISC.?Gómez panel 07/2017 was neg for clinically significant mutation. There was a VUS in SARAH. c/3577G>A (p.Ofl0988mug). Lifetime risk breast ca by Tyrer Cuzick model 18%.? * OB History:?Total pregnancies?2.?Total living children?2.?NVD?2.? * Surgical History:?Bilateral Tubal Ligation 1996Bladder Lift 2011Colonoscopy 2011 * Hospitalization/Major Diagno stic Procedure:?2 Vaginal Deliveries See Surgical Hx * Family History:?Mother: joselin e 83 yrs, breast cancer age 48, hyperlipidemia.?Father: alive 86 yrs, hypertension.?Maternal aunt: breast ca in her 40s.?1 brother(s) - healthy. .? * Social History:?Tobacco Use:?Tobacco Use/Smoking?Are you a?nonsmoker ???Sexual History:?Sexual History?Had sex in the past 12 months (vaginal, oral, or anal)??Yes ?Details of Sexual History?Are you sexually active??Yes ???Drugs/Alcohol:?Drugs?Have you used drugs other than those for medical reasons in the past 12 months??No ?Alcohol Screen (Audit-C)?Did you have a drink containing alcohol in the past year??Yes ?How often did you have a drink containing alcohol in the past year??Monthly or less (1 point) ?How many drinks did you have on a typical day when you were drinking in the past year??1 or 2 drinks (0 point) ?Points?1 ?Interpretation?Negative ???Miscellaneous:?Children: yes, 2. ?Domestic violence: no. ?Exercise: yes, Cardio. ?Home smoke detector use: yes. ?Living with: spouse. ?Marital status: , Remarried in 2019, . ?Natural support system: yes. 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 ?Sexual abuse: no. ?Sexually active: no. ?Verbal abuse: no. * Medications:?TakingGabapenti n 400 MG Capsule 1 capsule Orally Once a day Vitamin D3 25 MCG (1000 UT) Capsule 1 capsule Orally Once a day FLUoxetine HCl 40MG 30 1 ORAL twice daily , Notes to Pharmacist: Jd-MJLevoxyl 75 MCG Tablet 1 tablet in the morning on an empty stomach Orally Once a day , Notes to Pharmacist: Jd-MJZetia 10 MG Tablet 1 tablet Orally Once a day Probiotic Taking Gabapentin 400 MG Capsule 1 capsule Orally Once a day Taking Vitamin D3 25 MCG (1000 UT) Capsule 1 capsule Orally Once a day Taking FLUoxetine HCl 40MG 30 1 ORAL twice daily , Notes to Pharmacist: Jd-MJTaking Levoxyl 75 MCG Tablet 1 tablet in the morning on an empty stomach Orally Once a day , Notes to Pharmacist: Jd-MJTaking Zetia 10 MG Tablet 1 tablet Orally Once a day Taking Probiotic DiscontinuedrOPINIRole HCl 0.25 MG Tablet 1 tablet Orally Once a day Medication List reviewed and reconciled with the patientDiscontinued rOPINIRole HCl 0.25 MG Tablet 1 tablet Orally Once a day Medication List reviewed and reconciled with the patient * Allergies:?N.K.D.A.no[Allerg ies Verified] Objective: * Vitals:?Ht: 63.0 in, Wt:179l bs, BMI:31.7Index, BP:124/84mm Hg, Temp:98.2F. * Examination: ???General Exam: ?CONSTITUTIONAL:?General Appearance:?alert, in no acute distress, normal, well nourished ?NECK/THYROID:?Inspection/Palpation:?normal ?Thyroid:?normal size and shape ?RESPIRATORY:?Auscultation: clear to auscultation bilaterally, Respiratory Effort: normal.?CARDIOVASCULAR:?Auscultation: regular rate and rhythm.?BREAST, Right:?Inspection/Palpation:?no discharge, no masses present, no nipple retraction, no skin changes, no skin dimpling, no tenderness, no lymphadenopathy, no axillary mass, no axillary tenderness ?BREAST, Left:?Inspection/Palpation:?no discharge, no masses present, no nipple retraction, no skin changes, no skin dimpling, no tenderness, no lymphadenopathy, no axillary mass, no axillary tenderness ?GASTROINTESTINAL:?Abdomen:?no masses, nontender, nondistended ?Liver and Spleen:?normal ?Hernias:?no hernias present, no inguinal adenopathy ?MUSCULOSKELETAL:?Inspection/Palpation:?no clubbing, cyanosis, or edema ?SKIN:?Skin:?normal ?NEURO/PSYCH:?Orientation:?time , place, person ?Mood/Affect:?normal?Genitourinary: ?EXTERNAL GENITALIA:?External Genitalia:?normal, no lesions ?VAGINA:?Vagina:?normal appearance, no abnormal discharge, no lesions ?BLADDER:?Bladder:?no mass, nontender ?URETHRA:?Urethra:?no erythema or lesions present ?CERVIX:?Cervix:?no lesions, nontender ?UTERUS:?Uterus:?nontender, normal contour, normal mobility, normal size ?ADNEXA:?Adnexa:?no masses, no tenderness ?ANUS AND PERINEUM:?Anus/Perineum:?visually normal??? Assessment: * Assessment: 1.?Encounter for gynecologic al examination (general) (routine) without abnormal findings - Z01.419???2.?Encounter for screening mammogram for malignant neoplasm of breast - Z12.31???3.?Encounter for screening for osteoporosis - Z13.820??? Plan: * Treatment: ?LAB: Urinalysis (Collection Date & Time - 01/24/2024)* ? Value Reference Range ?PH 5.0 * ?PROTEIN TR * ?GLUCOSE NEG * ?BLOOD TR Notes: PAP TEST WITH HPV TYPING WAS OBTAINED.??2.?Encounter for screening mammogram for malignant neoplasm of breast?Imaging: MM Digital Mammo Screening* [place] Notes: REGULAR MAMMOGRAMS AND SBE'S WERE RECOMMENDED.??3.?Encounter for screening for osteoporosis?Imaging: BONE DENSITY* SCREENING BONE DENSITY AND P ATIENT IS POST MENOPAUSAL Z78.0 Notes: BONE DENSITY WAS ORDERED.?? * Imaging:? * ?Imaging: MAMMOGRAM, SCR EENING * Procedure Codes:? * Preventive Medicine:? ??YOUR PREVENTIVE WELLNESS PLAN:?Osteoporosis prevention?Calcium, D, strength training.?Breast Cancer Screening (Mammogram):?annually.?Cervical Cancer Screening (Pap Smear):?q 3 years with HPV screen.?Colorectal Cancer Screening:?q 10 years.? * Follow Up:?1 Year * Images: Billing Information: * Visit Code:? 37570 Preventive Care Est Pt. Age 65 and over. * Procedure Codes:? * Sign off status: Completed true * Appointment Provider:?Brionna Olson M.D. Date:?01/24/2024 Generated for Gladis vazquez/Leola/eTransmitting on:?09/02/2024 06:14 AM EDT History and Physical Notes * HPI (History of Present Illness) Category Sub-Category Detail Notes Category Not es New/Follow-up Patient Consult PAT ENTERED MENOPAUSE AT AGE 49. SHE GOT IN 2019 AND DENIES DYSPAREUNIA. HER MOTHER AND MATERNAL AUNT HAD BREAST CA. PAT REFUSED GENETIC COUNSELLING OR TESTING. HER LAST MAMMOGRAM DONE IN OCT 2023 SHOWED BREASTS ARE NOT DENSE AND WAS NORMAL. HER LAST PAP TEST IN 2020 WAS NEGATIVE AND HPV NEGATIVE. SHE HAD A COLONOSCOPY DONE IN 2020. SHE FELL AND FRACTURED A TOE LAST YEAR. WE WILL ORDER A BONE DENSITY THIS YEAR. [place]/LBR X 3. Annual General Health Maintenance: Current breast complaints:: no breast pain, mass, discharge, or skin changes Urinary problems:: patient r eports no urinary health problems or bowel health problems Calcium intake:: takes adequ ate calcium via diet and supplementation Significant AIR ANALYST problems:: n o significant nursery manager symptoms or problems Examination Category Sub-Category Detail Notes Category Not es General Exam CONSTITUTIONAL: General Appearan ce:: alert, in no acute distress, normal, well nourished NECK/THYROID: Thyroid:: normal size and shape Inspection/Palpation:: normal RESPIRATORY: Auscultation: clear to auscultation bilaterally, Respiratory Effort: normal CARDIOVASCULAR: Auscultation: regula r rate and rhythm GASTROINTESTINAL: Hernias:: no hernias present, no inguinal adenopathy Liver and Spleen:: normal Abdomen:: no masses, nontender, nondiste nded MUSCULOSKELETAL: Inspection/Palpation:: no clubb ing, cyanosis, or edema SKIN: Skin:: normal NEURO/PSYCH: Mood/Affect:: normal Orientation:: time , place, person BREAST, Right: Inspection/Palpation :: no discharge, no masses present, no nipple retraction, no skin changes, no skin dimpling, no tenderness, no lymphadenopathy, no axillary mass, no axillary tenderness BREAST, Left: Inspection/Palpation :: no discharge, no masses present, no nipple retraction, no skin changes, no skin dimpling, no tenderness, no lymphadenopathy, no axillary mass, no axillary tenderness Genitourinary EXTERNAL GENITALIA: External Genitalia:: nor mal, no lesions VAGINA: Vagina:: normal appearance, no a bnormal discharge, no lesions BLADDER: Bladder:: no mass, nontender URETHRA: Urethra:: no erythema or lesions present CERVIX: Cervix:: no lesions, nontender UTERUS: Uterus:: nontender, normal conto ur, normal mobility, normal size ADNEXA: Adnexa:: no masses, no tendernes s ANUS AND PERINEUM: Anus/Perineum:: visually norm al
[2024-09-02 07:18] LABS: Hematocrit 40.4 % (37.0-47.0); Hemoglobin 13.1 g/dl (12.0-16.0); Mean Corpuscular HGB Conc 32.4 g/dl (31.0-35.0); Mean Corpuscular Hemoglobin 28.3 pg (27.0-33.0); Mean Corpuscular Volume 87.3 fL (80.0-98.0); Mean Platelet Volume 9.3 fL (9.4-12.3); Platelet Count 234 X10*3/uL (160-400); Red Blood Count 4.63 X10*6/uL (4.20-5.50); Red Cell Distribution Width 13.3 % (11.0-16.0); White Blood Count 6.4 X10*3/uL (4.8-10.8)
[2024-09-02 07:28] LABS: Estimated Average Glucose 103 mg/dL; Hemoglobin A1C 114.2343 umol/L; Hemoglobin A1c % 5.2 % (<6.0); Total Hemoglobin (HGBA1C) 3415.5739 umol/L
[2024-09-02 07:55] LABS: Alanine Aminotransferase 14 U/L (0-31); Albumin Level 3.9 g/dL (3.5-5.0); Alkaline Phosphatase 81 U/L (39-117); Anion Gap 11 (12-20); Aspartate Amino Transferase 20 U/L (5-31); Bilirubin Total 0.5 mg/dL (0.0-1.0); Blood Urea Nitrogen 14 mg/dL (9-16); Calcium 8.9 mg/dL (8.4-10.2); Carbon Dioxide 26 mmol/L (22-29); Chloride 108 mmol/L (96-108); Cholesterol 215 mg/dL (<200); Estimated Glomerular Filt Rate > 60; Glucose Fasting 95 mg/dL (60-99); HDL Cholesterol 56 mg/dL (>40); LDL Cholesterol Calculated 141 mg/dL (<100); Potassium 4.1 mmol/L (3.3-5.1); Sodium 141 mmol/L (135-145); Total Protein 6.6 g/dL (6.5-8.0); Triglycerides 93 mg/dL (<150)
[2024-09-02 08:14] LABS: TSH reflex Free T4 1.93 uIU/mL (0.32-4.0)
== END 2024-09-02 06:12 | disposition home or self-care (01) ==
LOC: HO.LAB 06:11
PROVIDERS: PCP Physician Assistant; Visit Provider Physician Assistant
DX: E78.2 Mixed hyperlipidemia (principal); E03.9 Hypothyroidism, unspecified; R73.02 Impaired glucose tolerance (oral)
CPT/HCPCS: 36415; 80053; 80061; 83036; 84443; 85027

== ENCOUNTER 2024-10-30 07:44 | Outpatient (REF) | payer OTHER, SELFPAY ==
--- OUTSIDE RECORDS SUMMARY | 2024-10-30 07:48 | XMS_ITS | Patient Health Record ---
Author Organization [employer] [facility] [facility] Address [address] [place] [address] Care Team Providers Care Motorcycle Racer Name Role Phone NATALIO GARCIA Primary Care Provider Brionna Pierce Unavailable [phone] Allergies No Known Allergies Results Component Value Reference Range Notes Urinalysis Reviewed date:01/24/2024 10:51:51 AM Interpretation: Performing Lab: Notes/Report: PH 5.0 PROTEIN TR GLUCOSE NEG BLOOD TR [id number] IGP No Culture 30 Plus Reviewed date:01/29/2024 08:45:30 PM Interpretation: Performing Lab:[facility], [address], [address], [place], Phone - [phone], Director - [facility] Notes/Report: Clinical Information:[id number] Dates / Results....09/09/20 NIL No. of containers..01 ThinPrep Vial DIAGNOSIS: NEGATIVE FOR IN TRAEPITHELIAL LESION OR MALIGNANCY. Specimen adequacy: Satisfactory for evaluation. Endocervical and/or squamous metaplastic cells (endocervical component) are present. Clinician provided ICD10: Z0 1.419 Performed by: Trevon Castellanos , Schedule Checker (ASCP) . . Note: The Pap smear [...] PM Interpretation: Performing Lab:[facility] [place], [address], [address], [place], Phone - [phone], Director - [facility] Notes/Report: Clinical Information:[id number] Dates / Results....09/09/20 NIL No. of containers..01 ThinPrep Vial Reason For Referral No Information Medications Medication SIG (Take, Route, Frequency, Duration) Notes Start Date End Date Status Probiotic Active Zetia 10 MG 1 tablet Orally Once a day; Duration: 30 day(s) 10/20/2021 Active Vitamin D3 25 MCG (1000 UT) 1 capsule Orally Once a day; Duration: 30 day(s) Active Gabapentin 400 MG 1 capsule Orally Onc e a day Active Levoxyl 75 MCG 1 tablet in the morn ing on an empty stomach Orally Once a day [facility] [place]- 12/15/2013 Active FLUoxetine HCl 40MG 1 ORAL twice daily; Duration: -3 [facility] [place]- 10/11/2011 Active Social History Tobacco Use: Social History [...] Family history of malignant neoplasm of breast (402454668) Family history of malignant neoplasm of breast (Z80.3) Active confirmed Problem Hypothyroidism (34289001) Unspecified hypothyroidism (244.9) Active confirmed Major Problem Hyperlipidemia (40937311) Other and unspecified hyperlipidemia (272.4) Active confirmed Major Problem Depressive disorder (55763703) Depressive disorder, not elsewhere classified (311) Active confirmed Major Problem Mild dysplasia of cervix (472849521) Mild dysplasia of cervix (622.11) Active confirmed Diag Problem Mucous polyp of cervix (82797706) Mucous polyp of cervix (622.7) Active confirmed Diag Problem Postcoital bleeding (47082401) Postcoital bleeding (626.7) Active confirmed Diag Problem Menopausal symptom (87684066) Symptomatic menopausal or female climacteric states (627.2) Active confirmed Diag Problem Urinary incontinence (779228978) Unspecified urinary incontinence (788.30) Active confirmed Diag Problem Cervicovaginal cytology: Low grade squamous intraepithelial lesion (466790446) Papanicolaou smear of cervix with low grade squamous intraepithelial lesion (LGSIL) (795.03) Active confirmed Diag Problem Gynecological examination normal (920149689692795) Routine gynecological examination (V72.31) Active confirmed Diag Problem Dietary management surveillance (667757204) Dietary surveillance and counseling (V65.3) Active confirmed Diag Problem Exercises teaching, guidance, and counseling (149120308) Exercise counseling (V65.41) Active confirmed Diag Vital Signs Temperature 98.2 degrees Fahrenheit 01/24/2024 Blood pressure diastolic 84 mm Hg 01/24/2024 Height 63.0 in 01/24/2024 Blood pressure systolic 124 mm Hg 01/24/2024 Weight 179 lbs 01/24/2024 BMI 31.7 kg/m2 01/24/2024 Encounters Encounter Location Date Provider Diagnosis [address] [place] [address] 01/24/2024 Brionna Olson Encounter for gynecological examination [...] Screening 01/11/2023 Next Appt Details Provider Name:Brionna bob, 01/29/2025 10:00:00 AM, [address], [address], [place], [address], Insurance Providers Payer Name Payer Address Payer Phone Subscriber Number Group Number Insured Name Patient Relationship to Insured Coverage Start Date Coverage End Date [facility] [address] [place] [address] [id number] TERRY HOLT Self - patient is the [...]
== END 2024-10-30 07:45 | disposition home or self-care (01) ==
LOC: HO.MAMMO 07:44
PROVIDERS: PCP Physician Assistant; Visit Provider Physician Assistant
DX: Z12.31 Encounter for screening mammogram for malignant neoplasm of breast (principal)
CPT/HCPCS: 77063; 77067

== ENCOUNTER → 2024-10-30 08:00 | Outpatient (BNV) | payer OTHER, SELFPAY | PROVIDERS: PCP Physician Assistant; Visit Provider Internal Medicine | DX: Z12.31 Encounter for screening mammogram for malignant neoplasm of breast (principal) | CPT/HCPCS: 77063; 77067 ==

== ENCOUNTER 2025-03-12 11:02 | Outpatient (AMB) | payer OTHER, SELFPAY ==
--- OUTSIDE RECORDS SUMMARY | 2025-01-29 05:00 | XMS_ITS ---
Author Organization [employer] Address [address] [place] [address] [address] [place] [address] Care Team Providers Care Patch Driller Name Role Phone NATALIO GARCIA Primary Care Provider Brionna Pierce Unavailable [phone] REASON FOR VISIT Annual ROVING CARRIER Physical Encounters Encounter Location Date Provider Diagnosis [facility] [employer] [address] [place] [address] 01/29/2025 Brionna Olson Plan Of Treatment Next Appt Details Provider Name:Brionna bob, 06/11/2025 09:20:00 AM, [address] [place] [address], [address], [place], [address], Progress Notes * TERRY HOLT MDOB: (65 yo F)Acc No.[id number]:01/29/2025 PROGRESS NOTES Patient: Jason KOCH TERRY Luke Appointment Provider: Georgie Olson M.D. :1960 A ge:64 Y S ex:Female Date:01/29/2025 Address:[address] [place] [address], [id number] Pcp:MARY OLIVIA Subjective: * Chief Complaints: * 1 . Annual ROVING CARRIER Physical. * Medical History: Objective: * Vitals: Assessment: Plan: * Treatment: * Images: Billing Information: * Visit Code: * Procedure Codes: * Electronic signature of Elie Olson MD on 03/12/2025 at 01:35 PM EST Sign off status: Pending * Appointment Provider: Georgie Olson M.D. Date: 0 01/29/2025 Generated for Gladis vazquez/Leola/Isaias on: 1 05/12/2024 01:35 PM EST
--- OUTSIDE RECORDS SUMMARY | 2025-01-29 05:00 | XMS_ITS ---
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 :1960 A ge:64 Y S ex:Female Date:01/29/2025 Address:[address] [place] [address], [id number] Pcp:MARY OLIVIA Subjective: * Chief Complaints: * 1 . 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 * Medical History: Objective: * Vitals: [...]
[2025-03-12 11:12] VITALS: BP 118/74; PULSE 72; TEMP 36.3; O2SAT 94; BMI 27.5
--- NOTE | 2025-03-12 11:12 | MHC.PC.OV ---
Vital Signs 03/12/25 11:12 Height 5 ft 2 in Weight 150 lb 8 oz BMI 27.5 BP 118/74 Blood Pressure Location Lt brachial Position Sitting Pulse 72 Pulse Source Pulse Oximeter Temp 97.3 F Temp Source Temporal Artery Scan Pulse Oximetry (%) 94 Oxygen Delivery Method Room Air Intake Visit Reasons: Follow-up hypothyroidism Allergies No Known Allergies Allergy (Verified 03/12/25 11:29) Medication List - Last Reconciled 03/12/25 by Usman Segundo PA-C cholecalciferol (vitamin D3) (Vitamin D3) 50 mcg PO DAILY 90 days cyclobenzaprine 10 mg PO BEDTIME 15 days ezetimibe 10 mg PO DAILY 90 days fluoxetine 40 mg (2 x 20 mg) PO DAILY 90 days gabapentin 300 mg PO BEDTIME 30 days gabapentin 100 mg PO DAILY 30 days levothyroxine 75 mcg PO DAILY 90 days psyllium husk (Metamucil) 0.4 grams PO DAILY ropinirole 0.25 mg PO BEDTIME 90 days Held on 07/12/23. Instructions: Doctor's Order triamcinolone acetonide 0.5% 1 appl topical BID 7 days Tobacco use date assessed: 03/12/25 Fall risk assessment: No Falls in past year Last assessed Fall Risk: 03/12/25 Dental Screening Dental Screen Date: 03/12/25 Did you have a dental visit in the last 12 months?: Yes Did you have a dental problem in the last 6 months where you did not have access to dental care?: No Was dental information given to patient?: Patient has dentist HPI Follow-up hypothyroidism HPI Details Patient is a 65-year-old female here today for a weight check/follow-up visits. Patient has a past medical history significant for depression, hypothyroidism, hyperlipidemia, obesity, inflammatory bowel disease.. Axillary pruritus: The patient reports a chronic underarm itch that began after she had children. She has been evaluated by dermatology in the past and has never had a rash associated with the pruritus. She has used triamcinolone cream, currently 0.5%, but requests a higher strength as she feels it is more effective and lasts longer. ? Hypothyroid Tsh normal, has been chemically and? clinically euthyroid. .. Overweight: The patient was previously on GLP-1 therapy (Tirzepatide 2.5 mg) for weight loss but has been off the medication for a few months as the prescription and required updated information for renewal. Despite being off the medication, she has maintained a 10-pound weight loss since her last visit. She wishes to restart the medication because it helps control food noise and promotes healthier eating habits. The patient denies a history of diabetes or obstructive sleep apnea. Restless leg syndrome: Continues with gabapentin 400 mg daily with good effect. .. . Hyperlipidemia:? Lipid panel has improved ..? LDL acceptable.? Will continue her on Zetia 10 mg daily. She has discontinue statin therapy due to thoughts of causing neuropathy in her lower extremities. Continue to hold statin for now, we hope with weight loss her cholesterol will even improved. [facility] Medical History Vitamin D deficiency Terminal ileitis Restless leg syndrome Hypothyroidism Anxiety and depression Colon cancer screening Surgical History History of colonoscopy History of tubal ligation Family History Father Prostate cancer Mother Celiac disease Breast cancer Brother In good health Daughter In good health Social History Housing: Condominium Alcohol intake: current Alcohol intake frequency: a few times a month Patient Tobacco Use Status: Former Tobacco user Tobacco use type: Cigarette e-Cigarette/Vaping Use: Never Used Second Hand Smoke Exposure: No service: No Current occupational status: employed 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 1. Little interest or pleasure in doing things: not at all 2. Feeling down, depressed, or hopeless: not at all 3. Trouble falling or staying asleep, or sleeping too much: not at all 4. Feeling tired or having little energy: not at all 5. Poor appetite or overeating: not at all 6. Feeling bad about yourself - or that you are a failure or have let yourself or your family down: not at all 7. Trouble concentrating on things, such as reading the newspaper or watching television: not at all 8. Moving or speaking so slowly that other people could have noticed. Or the opposite - being so fidgety or restless that you have been moving around a lot more than usual: not at all 9. Thoughts that you would be better off or of hurting yourself in some way: not at all Total score: 0 Depression Screening Interpretation: Negative Depression Screening Done: Yes 45120 - PHQ-9 Billing: Patient declined-do not bill Source: Developed by Drs. Alan Austin, Matilda Wise, Adonis Olvera and colleagues, with an educational lev from [employer]. Thrive Questionnaire Date Thrive assessed: 05/15/24 I am a: Patient What is your living situation today?: I have a steady place to live Within the past 12 months, did the food you bought not last and you didn't have the money to get more?: Never true Within the past 12 months, did you worry whether your food would run out before you got money to buy more?: Never true Do you have trouble paying for medicines?: No Do you have trouble getting transportation to medical appointments?: No Do you have trouble paying your heating and electricity bill?: No Do you have trouble taking care of your child, family member or friend?: No Do you have trouble with day-to-day activities such as bathing, preparing meals, shopping, managing finances, etc.?: No Are you currently unemployed and looking for a job?: No Are you interested in more education?: No Please select the resources that you would like help with: None Currently or been in a relationship where the following occur: No concerns reported THRIVE Score: 0 AUDIT C Alcohol Use Questionnaire (AUDIT-C) 1. How often do you have a drink containing alcohol?: Monthly or less 2. How many drinks containing alcohol do you have on a typical day when you are drinking?: 1 or 2 3. How often do you have six or more drinks on one occasion?: Never Total Score: 1 JOHNATHAN-7 AMB Questionnaire JOHNATHAN-7 Date JOHNATHAN - 7 assessed: 05/15/24 Feeling nervous, anxious, or on edge: 0 = Not at all Not being able to stop or control worryin = Not at all Worrying too much about different things: 0 = Not at all Trouble relaxin = Not at all Being so restless that it is hard to sit still: 0 = Not at all Becoming easily annoyed or irritable: 0 = Not at all Feeling afraid as if something awful might happen: 0 = Not at all Total JOHNATHAN-7 score (0-4 normal; 5-9 mild; 10-14 moderate; 15-21 severe): 0 Source: Developed by Drs. Alan Austin, Matilda Wise, Adonis Olvera and colleagues, with an educational lev from [employer]. JOHNATHAN-7 Assessment Billing JOHNATHAN-7 Assessment Tool: JOHNATHAN-7 Assessment 48579 Review of Systems Const Denies headache(s) Eyes Denies loss of vision ENT Denies vertigo, Denies dizziness, Denies headache(s) and Denies sore throat Card Denies chest pain, Denies leg edema and Denies lightheadedness Resp Denies cough, Denies hemoptysis and Denies wheezing GI Denies abdominal pain, Denies melena, Denies constipation, Denies diarrhea and Denies vomiting Denies urinary frequency, Denies dysuria and Denies urinary urgency Musc Denies arthralgias, Denies joint swelling, Denies numbness and Denies tingling Neuro Denies Abnormal speech present, Denies behavioral changes, Denies vertigo, Denies dizziness, Denies headache(s), Denies loss of vision, Denies memory loss, Denies numbness and Denies tingling Psych Denies anxiety, Denies behavioral changes, Denies depression, Denies memory loss and Denies panic attacks Mark/Lymph Denies easy bleeding and Denies easy bruising Aller/Immun Denies wheezing Physical exam (Primary Care) Vital Signs: Last Vital Signs Temp 97.3 F 03/12/25 11:12 Pulse 72 03/12/25 11:12 BP 118/74 03/12/25 11:12 Pulse Ox 94 03/12/25 11:12 Oxygen Delivery Method Room Air 03/12/25 11:12 BMI result Body Mass Index 27.5 Tobacco/Smoking Status: Tobacco use Status Tobacco use date assessed 03/12/25 03/12/25 11:15 Patient Tobacco Use Status Former Tobacco user 03/12/25 11:15 Tobacco use type Cigarette 03/12/25 11:15 e-Cigarette/Vaping Use Never Used 03/12/25 11:15 PHQ-9: PHQ-9 Score PHQ-9: Total score 0 03/12/25 11:15 Depression Screening Interpretation: Negative Thrive Assessment: Date of Thrive Assessment Date Thrive assessed 05/15/24 03/12/25 11:15 Currently or been in a relationship where the following occur: No concerns reported Const General: healthy appearing, no acute distress, alert and awake Nutritional Appearance: well nourished Orientation/consciousness: oriented to person, oriented to place and oriented to time HENMT Ears: TM's normal bilaterally General nose exam: Normal nasal mucous membranes and turbinates present Eyes Conjunctivae: conjunctivae normal Sclerae: sclerae normal Pupils: Equal, round and reactive pupils present Neck Neck: Yes no lymphadenopathy and Yes no JVD Thyroid: Thyroid normal Carotids: no bruits Resp Effort & Inspection: normal respiratory effort and not tachypneic Auscultation: no crackles, no rales, no rhonchi and no wheezes Cardio Rate: regular rate Rhythm: regular rhythm Heart sounds: no murmurs and normal S1 and S2 GI Palpation (GI): Soft to palpation, nontender, no hepatomegaly and no splenomegaly Auscultation: normal bowel sounds Skin General skin exam: no rashes or lesions noted and dry skin Neuro General: oriented to person, oriented to place and oriented to time Cranial nerves: Yes Equal, round and reactive pupils present Speech: No Abnormal speech present Gait exam (Neuro): Normal gait present Motor exam (neuro): no tremor noted Extrem Right upper extremity: full ROM Left upper extremity: full ROM Right lower extremity: full ROM; no edema Left lower extremity: full ROM; no edema Psych Mental Status: mental status grossly normal Speech and movement: Normal speech and movement present Affect: normal affect Attitude: cooperative Thought process: Normal thought process present Coding Level of Care Code Est Pt Level 4 (94717) Diagnoses Hypothyroidism, unspecified type E03.9 Hypothyroidism type: unspecified Dermatitis L30.9 Class 1 obesity E66.811 Mixed hyperlipidemia E78.2 Hyperlipidemia type: mixed hyperlipidemia Impaired glucose tolerance R73.02 Additional Codes JOHNATHAN-7 Assessment Billing - JOHNATHAN-7 Assessment Tool: JOHNATHAN-7 Assessment 88296 ([id number]) Assessment & Plan Assessment & Plan (1) Hypothyroid: Code(s): E03.9 - Hypothyroidism, unspecified Category: Medical Qualifiers: Hypothyroidism type: unspecified Qualified Code(s): E03.9 - Hypothyroidism, unspecified Plan: Patient's most recent TSH stable. Will continue her current dose of levothyroxine 75 mcg. (2) Dermatitis: Code(s): L30.9 - Dermatitis, unspecified Category: Medical Plan: Has had a chronic axillary itch for many years, she reports triamcinolone has helped though not as effective as it once was. She would like to change to a different topical steroid. (3) Class 1 obesity: Code(s): E66.811 - Obesity, class 1 Category: Medical Plan: Patient's BMI now much improved. She is using a GLP 1 previously and was able to lose significant amount of weight particularly 5% of her total body mass. For weight management, a prescription for Tirzepatide (Zepbound) 2.5 mg will be sent to the pharmacy. The patient wants to restart this to control food cravings, we did discuss the probability this medication not being covered by insurance and patient is okay with this. . (4) HLD (hyperlipidemia): Code(s): E78.5 - Hyperlipidemia, unspecified Category: Medical Qualifiers: Hyperlipidemia type: mixed hyperlipidemia Qualified Code(s): E78.2 - Mixed hyperlipidemia Plan: Most recent lipid panel showing good control over total cholesterol and LDL. Will recheck fasting lipid panel to ensure stable total cholesterol and LDL. She has lost weight being on a GLP 1 recently (5) Impaired glucose tolerance: Code(s): R73.02 - Impaired glucose tolerance (oral) Category: Medical Plan: Most recent fasting blood sugar stable. Will continue on lifestyle and dietary modifications. She is interested in restarting a GLP 1 to help reduce her full dose. Orders: Orders Lipid Panel Today E78.2 - Mixed hyperlipidemia TSH reflex Free T4 Today E03.9 - Hypothyroidism, unspecified Comprehensive [place]. Panel Fast Today E78.2 - Mixed hyperlipidemia Hemoglobin A1c Today R73.02 - Impaired glucose tolerance (oral) Medications: New betamethasone valerate 0.1% 1 appl topical DAILY PRN 45 grams 0RF skin irritation 4 weeks L30.9 - Dermatitis, unspecified tirzepatide (weight loss) (Zepbound) for 4 weeks 2.5 mg (0.5 mL) subcut QWEEK 2 mL 1RF 4 weeks E66.811 - Obesity, class 1, E78.2 - Mixed hyperlipidemia Discontinued triamcinolone acetonide 0.5% Discontinued Reason: Doctor's Order 1 appl topical BID 7 days 15 grams 3RF E78.2 - Mixed hyperlipidemia
--- OUTSIDE RECORDS SUMMARY | 2025-03-12 13:35 | XMS_ITS | Patient Health Record ---
Author Organization [facility] Address [address] [place] [address] Care Team Providers Care Tableau Developer Name Role Phone NATALIO GARCIA Primary Care Provider Brionna Pierce Unavailable [phone] Allergies No Known Allergies Reason For Referral No Information Medications Medication [...] an empty stomach Orally Once a day [facility]15[place]2013 Active FLUoxetine HCl 40MG 1 ORAL twice daily; Duration: -3 [facility] [place] 10[place]11/2011 Active Social History Tobacco Use: Social [...] Family history of malignant neoplasm of breast (309979907) Family history of malignant neoplasm of breast (Z80.3) Active confirmed Problem Hypothyroidism (51654275) Unspecified hypothyroidism (244.9) Active confirmed Major Problem Hyperlipidemia (30555138) Other and unspecified hyperlipidemia (272.4) Active confirmed Major Problem Depressive disorder (02559448) Depressive disorder, not elsewhere classified (311) Active confirmed Major Problem Mild dysplasia of cervix (066392270) Mild dysplasia of cervix (622.11) Active confirmed Diag Problem Mucous polyp of cervix (94276831) Mucous polyp of cervix (622.7) Active confirmed Diag Problem Postcoital bleeding (53557228) Postcoital bleeding (626.7) Active confirmed Diag Problem Menopausal symptom (62357679) Symptomatic menopausal or female climacteric states (627.2) Active confirmed Diag Problem Urinary incontinence (020028535) Unspecified urinary incontinence (788.30) Active confirmed Diag Problem Cervicovaginal cytology: Low grade squamous intraepithelial lesion (404690756) Papanicolaou smear of cervix with low grade squamous intraepithelial lesion (LGSIL) (795.03) Active confirmed Diag Problem Gynecological examination normal (759721971869873) Routine gynecological examination (V72.31) Active confirmed Diag Problem Dietary management surveillance (365400054) Dietary surveillance and counseling (V65.3) Active confirmed Diag Problem Exercises teaching, guidance, and counseling (302757770) Exercise counseling (V65.41) Active confirmed Diag Plan Of Treatment Pending Test Test Name Order Date MAMMOGRAM, SCREENING 10/20/2021 MAMMOGRAM, SCREENING 01/11/2023 MAMMOGRAM, SCREENING 01/24/2024 Urinalysis 09/09/2020 BONE DENSITY 01/24/2024 MM Digital Mammo Screening 10/20/2021 MM Digital Mammo Screening 06/19/2017 MM Digital Mammo Screening 09/09/2020 MM Digital Mammo Screening 01/24/2024 MM Digital Mammo Screening 01/11/2023 Next Appt Details Provider Name:Brionna bob, 06/11/2025 09:20:00 AM, [address], [address], [place], [address], Insurance Providers Payer Name Payer Address Payer Phone Subscriber Number Group Number Insured Name Patient Relationship to Insured Coverage Start Date Coverage End Date [facility] [address] [place] [address] [id number] TERRY HOLT Self - patient is the [...] Tubal Ligation 1996 Bladder Lift 2011 Colonoscopy 2011 Hospitalization History Reason Date(Month/Year) See Surgical Hx 2 Vaginal Deliveries
--- OUTSIDE RECORDS SUMMARY | 2025-03-12 13:35 | XMS_ITS | Clinical Summary ---
Author Organization [facility] Address [address] [place] [id number] Phone Care Team Providers Care Truck Unloader Name Role Phone Usman Segundo Primary Care Provider + Medications No known medications Active Problems No known active problems Social History Tobacco Use Types Packs/Day Years Used Date Smoking Tobacco: Never Assessed Education Answer Date Recorded Are you interested in more education? Not on elmira e 04/05/2023 Are you concerned about learning? Not on file 04/05/2023 No 04/05/2023 No 04/05/2023 Digital Access Answer Date Recorded No 04/05/2023 No 04/05/2023 Reliable internet access at home? Not on file 04/05/2023 Device with a working camera? Not on file Comments Unknown Sex and Gender Information Value Date Recorded Sex Assigned at Female 05/03/2023 3:08 PM EST Legal Sex Female 9:47 PM EDT Gender Identity Female 05/03/2023 3:08 PM EST Sexual Orientation Not on file Plan of Treatment Health Maintenance Due Date Last Done Comments LIPID PANEL 1961 DEPRESSION SCREENING 1973 SMOKING Hx and SMOKELESS TOBACCO SCREENING 1974 HEPATITIS C SCREENING 1979 HIV ONE-TIME SCREENING (18-65 YEARS) 1979 PAP SMEAR 1982 MAMMOGRAM 2001 COLOGUARD 2006 COLONOSCOPY 2006 COLORECTAL CANCER SCREENING 2006 FIT TEST 2006 FOBT 2006 SIGMOIDOSCOPY 2006 VIRTUAL COLONOSCOPY 2006 PNEUMOCOCCAL VACCINES (50+ years) (2 of 2 - PCV) 11/18/2021 11/18/2020 INFLUENZA VACCINE (#1) 2024 , 02/01/2021, 01/20/2020, Additional history exists COVID-19 VACCINE ( - season) 2025 02/10/2021, 06/18/2020, 05/28/2020 Adult Td,Tdap Booster 07/11/2027 07/10/2017 RSV VACCINE (1 - 1-dose 75+ series) 02/03/2036 ZOSTER VACCINES Completed 04/17/2020, 03/06/2020 HEPATITIS A VACCINES Aged Out No long er eligible based on patient's age to complete this topic HIB VACCINES Aged Out No longer eligi ble based on patient's age to complete this topic MENINGOCOCCAL VACCINES (ACWY) Aged Out No longer eligible based on patient's age to complete this topic MENINGOCOCCAL VACCINES (B) Aged Out N o longer eligible based on patient's age to complete this topic Medical Devices Not on file Insurance [facility] Care Teams Truck Unloader Relationship Specialty Start Date End Date Usman Segundo PA [address] [facility] [place] [address] PCP - General Physician Movable Bulkhead Installer 04/05/23 Additional Source Comments The information contained in this document represents components of the legal health record. It is not the complete legal health record.[facility]
== END 2025-03-12 11:45 | disposition home or self-care (01) ==
LOC: HO.HMCH 11:04
PROVIDERS: PCP Physician Assistant; Visit Provider Physician Assistant
DX: E03.9 Hypothyroidism, unspecified (principal); E66.811 Obesity, class 1; Z68.27 Body mass index [BMI] 27.0-27.9, adult; L30.9 Dermatitis, unspecified; E78.2 Mixed hyperlipidemia; R73.02 Impaired glucose tolerance (oral)

== ENCOUNTER → 2025-03-12 11:02 | Outpatient (BNVA) | payer OTHER, SELFPAY | PROVIDERS: PCP Physician Assistant; Visit Provider Physician Assistant | DX: E66.811 Obesity, class 1 (principal); E03.9 Hypothyroidism, unspecified; G25.81 Restless legs syndrome; E78.5 Hyperlipidemia, unspecified; L30.9 Dermatitis, unspecified; E78.2 Mixed hyperlipidemia; R73.02 Impaired glucose tolerance (oral); Z68.27 Body mass index [BMI] 27.0-27.9, adult | CPT/HCPCS: 96127 ==